=== PATIENT | female | born 1990 | race African-American/Black ===

== ENCOUNTER 2019-01-09 20:06 | Emergency (ER) | payer OTHER ==
--- NOTE | 2019-01-09 20:26 | RAD ---
XR Chest 1 View Portable HISTORY: Chest pain COMPARISON: 01/18/2017 study FINDINGS: Heart size and mediastinum are within normal limits. The lungs are clear of infiltrates. No significant bony findings. IMPRESSION: No active intrathoracic disease.
[2019-01-09] MEDS ORDERED: Aspirin Chewable 81 MG TAB ONE (20:32)
[2019-01-09] MEDS ORDERED: Metoclopramide HCl 10 MG/2 ML VIAL ONE (20:36)
[2019-01-09] MEDS ORDERED: Capsaicin 0.025% Cream 60 gm Tube TOP SCH (20:45)
[2019-01-09 20:55] LABS: #Lymphocytes 1.9 thou/uL (1.20-3.40); #Monocytes 1.5 thou/uL (0.11-0.59); #Neutrophils 10.3 thou/uL (1.40-6.50); %Basophils 0.2 % (0.0-1.0); %Eosinophils 0.1 % (0.0-10.0); %Lymphocytes 13.9 % (21.0-51.0); %Monocytes 10.6 % (0.0-10.0); %Neutrophils 75.2 % (42.0-75.0); Hemoglobin 14.6 g/dL (12.0-16.0); Mean Corpuscular HGB CONC 34.9 g/dL (32.0-36.0); Mean Corpuscular Hemoglobin 31.4 pg (27.0-31.0); Mean Corpuscular Volume 90.2 fL (78.0-98.0); Mean Platelet Volume 8.3 fL (7.4-10.4); Platelet Count 206 thou/uL (130-400); RBC Distribution Width 12.2 % (11.5-14.5); Red Blood Cell (RBC) Count 4.64 mill/uL (4.20-5.40); White Blood Cell (WBC) Count 13.7 thou/uL (4.8-10.8)
[2019-01-09 21:17] LABS: ALT (SGPT) 19 U/L (8-55); AST (SGOT) 20 U/L (5-34); Albumin 4.5 g/dL (3.5-5.0); Alkaline Phosphatase 45 U/L (40-150); Anion Gap 13 mmol/L (10-20); BUN (Urea Nitrogen) 13 mg/dL (7.0-18.7); Bilirubin, Total 1.1 mg/dL (0.2-1.2); Calc. Creatinine Clearance 0 mL/min (70-130); Calcium 9.3 mg/dL (7.8-10.44); Carbon Dioxide 24 mmol/L (22-29); Chloride 106 mmol/L (98-107); Estimated GFR-MDRD 83; Globulin 3.3 g/dL (2.4-3.5); Glucose 98 mg/dL (70-105); Lipase 17 U/L (8-78); Potassium 3.3 mmol/L (3.5-5.1); Protein, Total 7.8 g/dL (6.0-8.3); Sodium 140 mmol/L (136-145)
== END 2019-01-09 22:46 | disposition home or self-care (01) ==
LOC: ERS 20:06
DX: R07.89 Other chest pain (principal); G43.A0 Cyclical vomiting, in migraine, not intractable; J45.909 Unspecified asthma, uncomplicated; F31.9 Bipolar disorder, unspecified
CPT/HCPCS: 36415; 71045; 80053; 83690; 84484; 85025; 85379; 93005; 96365; 96366; J2765

== ENCOUNTER 2019-01-10 08:40 | Emergency (ER) | payer OTHER ==
[2019-01-10] MEDS ORDERED: Lorazepam 2 MG/ML VIAL ONE (09:43)
== END 2019-01-10 10:10 | disposition home or self-care (01) ==
LOC: ERS 08:40
DX: F41.9 Anxiety disorder, unspecified (principal); J45.909 Unspecified asthma, uncomplicated; F31.9 Bipolar disorder, unspecified; F20.9 Schizophrenia, unspecified
CPT/HCPCS: 96374; J2060

== ENCOUNTER 2020-06-16 11:32 | Emergency (ER) | payer OTHER ==
[2020-06-16 18:19] LABS: SARS-CoV-2 PCR by NAA DETECTED (NotDetected)
== END 2020-06-16 11:59 | disposition home or self-care (01) ==
LOC: ERS 11:32
DX: U07.1 COVID-19 (principal); J45.909 Unspecified asthma, uncomplicated
CPT/HCPCS: 87635; 99283; U0003; U0005

== ENCOUNTER 2021-02-19 23:49 | Emergency (ER) | payer OTHER | END 2021-02-20 01:45 | LOC: ERS 23:49 | DX: J45.901 Unspecified asthma with (acute) exacerbation (principal) | CPT/HCPCS: 71045 ==

== ENCOUNTER 2021-04-07 17:49 | Inpatient (IN) | payer OTHER ==
[~2021-04-07 17:49] MED LIST: Iopamidol-370 76% 500 ML 1 ML ONE
[2021-04-07] MEDS ORDERED: Albuterol Sulfate 2.5 mg/0.5 ml Neb ONE (17:59)
[2021-04-07] MEDS ORDERED: Albuterol Sulfate 2.5 mg/3 ml Neb ONE (17:59)
[2021-04-07] MEDS ORDERED: Norepinephrine 8 MG/0.9% NS 250 ML ONE (18:08)
[2021-04-07 18:10] LABS: #Basophils 0.1 thou/uL (0.0-0.2); #Eosinphils 0.4 thou/uL (0.0-0.7); #Lymphocytes 3.8 thou/uL (1.20-3.40); #Monocytes 0.5 thou/uL (0.11-0.59); #Neutrophils 6.1 thou/uL (1.40-6.50); %Basophils 0.7 % (0.0-1.0); %Eosinophils 3.9 % (0.0-10.0); %Lymphocytes 35.1 % (21.0-51.0); %Monocytes 4.8 % (0.0-10.0); %Neutrophils 55.6 % (42.0-75.0); Mean Corpuscular HGB CONC 33.2 g/dL (32.0-36.0); Mean Corpuscular Volume 93.4 fL (78.0-98.0); Mean Platelet Volume 7.7 fL (7.4-10.4); Platelet Count 179 thou/uL (130-400); RBC Distribution Width 12.9 % (11.5-14.5); Red Blood Cell (RBC) Count 4.53 mill/uL (4.20-5.40); White Blood Cell (WBC) Count 10.9 thou/uL (4.8-10.8)
[2021-04-07] MEDS ORDERED: Fentanyl BOLUS 250 ML IVPB PRN ×2 (18:15→21:00)
[2021-04-07] MEDS ORDERED: Fentanyl CADD 100 ML IV SCH (18:15)
[2021-04-07 18:23] LABS: BHCG - Serum Negative (NEGATIVE); Pregs Control Background? CLEAR/WHITE (CLR/WHITE); Pregs Control Bar Appear? YES (CONTROL BAR)
[2021-04-07 18:38] LABS: ALT (SGPT) 13 U/L (8-55); AST (SGOT) 21 U/L (5-34); Albumin 3.9 g/dL (3.5-5.0); Alkaline Phosphatase 65 U/L (40-110); Anion Gap 9 mmol/L (10-20); BUN (Urea Nitrogen) 6 mg/dL (7.0-18.7); Bilirubin, Total 0.3 mg/dL (0.2-1.2); Calc. Creatinine Clearance 0 mL/min (70-130); Calcium 8.5 mg/dL (7.8-10.44); Carbon Dioxide 29 mmol/L (22-29); Chloride 105 mmol/L (98-107); Globulin 3.3 g/dL (2.4-3.5); Glucose 140 mg/dL (70-105); Potassium 3.1 mmol/L (3.5-5.1); Protein, Total 7.2 g/dL (6.0-8.3); Sodium 140 mmol/L (136-145)
[2021-04-07 18:39] LABS: Actual Bicarbonate (HCO3a) 19.4 mEq/L (22-28); Analyzer IN Cardio ER; Base Excess (BEa) -6.8 mEq/L (-2.0 to +3.0); Calcium, Ionized (arterial) 1.03 mmol/L (1.12-1.30); Carboxyhemoglobin (COHb) 0.3 gm% (0.0-3.0); Hemoglobin (Hb) 12.2 g/dL (12.0-16.0); O2 Tension (PaO2), arterial 326.8 mmHg (80.0-100.0); Potassium - ABG Lab 2.74 mmol/L (3.70-5.30); pH, Arterial 7.29 (7.35-7.45)
[2021-04-07 18:42] LABS: Puncture Site LRA
[2021-04-07 19:02] LABS: Bacteria/HPF None Seen HPF (None Seen); Bilirubin Negative (Negative); Blood, Urine 1+ (Negative); Clarity Clear (Clear); Glucose, Urine (Dipstick) 50 mg/dL (Negative); Ketone, Urine Negative (Negative); Leukocyte Negative Leu/uL (Negative); Nitrite Negative (Negative); Protein, Urine (Dipstick) 30 mg/dL (Neg-Trace); RBC/HPF 0-3 HPF (0-3); Specific Gravity, Urine 1.011 (1.002-1.036); Squamous Epithelial 0-3 HPF (0-3); Urobilinogen Normal mg/dL (Less than 2); WBC/HPF 0-3 HPF (0-3); pH, Urine 5.5 (5.0-9.0)
[2021-04-07 19:39] LABS: SARS-CoV-2 NAA Rapid Test Not Detected (NotDetected)
[2021-04-07] MEDS ORDERED: Cefepime 2 GM VIAL ONE (20:33)
[2021-04-07] MEDS ORDERED: Norepinephrine 8 MG/0.9% NS 250 ML IVPB PRN (20:36)
[2021-04-07] MEDS ORDERED: Acetaminophen 650 MG Suppository PR PRN (20:36)
[2021-04-07 20:43] LABS: Amphetamine Not Detected (NotDetected); Barbiturates Screen Not Detected (NotDetected); Benzodiazepine Screen Not Detected (NotDetected); Cocaine Metabolite Screen Not Detected (NotDetected); Methadone Not Detected (NotDetected); Methamphetamine Detected (NotDetected); Opiate Screen Not Detected (NotDetected); Oxycodone Screen Not Detected (NotDetected); Phencyclidine (PCP) Not Detected (NotDetected); THC/Cannabinoid Screen Detected (NotDetected); Tricyclic Screen Not Detected (NotDetected)
[2021-04-07] MEDS ORDERED: Ventilator Sedation Protocol 1 EACH FS SCH (20:45)
[2021-04-07] MEDS ORDERED: Morphine 4 MG/ML VIAL SLOW IVP PRN (20:59)
[2021-04-07] MEDS ORDERED: Propofol BOLUS 1,000 MG/100 ML VIAL IV PRN (21:00)
[2021-04-07] MEDS ORDERED: DISCONTINUE PREVIOUS NARCOTIC PAIN MEDICATIONS AND BENZODIAZEPINES FS SCH (21:00)
[2021-04-07] MEDS ORDERED: Morphine 2 MG/ML VIAL SLOW IVP PRN (21:00)
[2021-04-07 21:10] LABS: Magnesium 2.3 mg/dL (1.6-2.6)
[2021-04-07] MEDS ORDERED: Potassium Chloride 20 MEQ TAB PO SCH (21:15)
[2021-04-07] MEDS ORDERED: Electrolyte Replacement Protocol 1 EACH FS PRN (21:15)
[2021-04-07] MEDS ORDERED: Vancomycin 1 GM in Premix Bag 1 BAG IVPB SCH (21:30)
[2021-04-07] MEDS: Lorazepam 2 MG/ML VIAL SLOW IVP PRN (21:33)
[2021-04-07] MEDS ORDERED: methylPREDNISolone Sod Succ/PF 125 MG/2 ML VIAL IVP SCH (21:45)
[2021-04-07] MEDS ORDERED: Albuterol Sulfate 2.5 mg/3 ml Neb NEB PRN (21:54)
[2021-04-07] MEDS: Propofol 1,000 MG/100 ML VIAL IV PRN (22:19)
[2021-04-07] MEDS: Sodium Chloride 0.9% 1,000 ML IV SCH (22:55)
[2021-04-07] MEDS ORDERED: Potassium Bicarbonate/Cit Ac 20 MEQ TAB PO SCH (23:45)
[2021-04-07 23:50] LABS: Lactic Acid 2.6 mmol/L (0.5-2.2)
[2021-04-08] MEDS: Lorazepam 2 MG/ML VIAL SLOW IVP PRN ×3 (00:32→12:08)
[2021-04-08] MEDS: Sodium Chloride 0.9% 1,000 ML IV SCH ×4 (01:54→17:56)
[2021-04-08] MEDS ORDERED: Sodium Chloride 0.9% 1,000 ML IV SCH ×3 (03:00→05:45)
[2021-04-08 04:50] LABS: Lactic Acid 4.3 mmol/L (0.5-2.2)
[2021-04-08 04:52] LABS: Anion Gap 15 mmol/L (10-20); BUN (Urea Nitrogen) 5 mg/dL (7.0-18.7); Calc. Creatinine Clearance 77 mL/min (70-130); Calcium 7.2 mg/dL (7.8-10.44); Carbon Dioxide 19 mmol/L (22-29); Chloride 110 mmol/L (98-107); Glucose 148 mg/dL (70-105); Sodium 139 mmol/L (136-145)
[2021-04-08] MEDS ORDERED: MEROPENEM 1 GM/50 ML 1 GM in Premix Bag 1 BAG IVPB SCH ×2 (05:30→09:00)
[2021-04-08] MEDS: Enoxaparin Sodium 40 MG/0.4 ML SYRINGE SC SCH (07:19)
[2021-04-08] MEDS: Propofol 1,000 MG/100 ML VIAL IV PRN ×2 (07:19→17:55)
[2021-04-08 07:20] LABS: #Lymphocytes 0.5 thou/uL (1.20-3.40); #Monocytes 0.2 thou/uL (0.11-0.59); #Neutrophils 14.2 thou/uL (1.40-6.50); %Eosinophils 0.1 % (0.0-10.0); %Lymphocytes 3.1 % (21.0-51.0); %Monocytes 1.6 % (0.0-10.0); %Neutrophils 95.3 % (42.0-75.0); Hemoglobin 12.4 g/dL (12.0-16.0); Mean Corpuscular HGB CONC 32.3 g/dL (32.0-36.0); Mean Corpuscular Hemoglobin 30.3 pg (27.0-31.0); Mean Corpuscular Volume 93.7 fL (78.0-98.0); Mean Platelet Volume 7.9 fL (7.4-10.4); Platelet Count 180 thou/uL (130-400); RBC Distribution Width 12.9 % (11.5-14.5); Red Blood Cell (RBC) Count 4.11 mill/uL (4.20-5.40); White Blood Cell (WBC) Count 14.9 thou/uL (4.8-10.8)
[2021-04-08] MEDS ORDERED: Fentanyl CADD 100 ML ONE ×2 (07:27→18:47)
[2021-04-08] MEDS: Fentanyl CADD 100 ML IV SCH ×2 (07:29→19:10)
[2021-04-08 07:31] LABS: Lactic Acid 3.4 mmol/L (0.5-2.2)
[2021-04-08] MEDS ORDERED: Vecuronium 10 MG VIAL ONE (07:42)
[2021-04-08] MEDS ORDERED: Cefepime 2 GM in Sodium Chloride 0.9% 100 ML IVPB SCH (09:00)
[2021-04-08] MEDS ORDERED: methylPREDNISolone Sod Succ 40 MG VIAL IVP SCH (09:00)
[2021-04-08] MEDS ORDERED: Vancomycin HCl 1.5 GM in Sodium Chloride 0.9% 250 ML 300 ML IVPB SCH (09:00)
[2021-04-08] MEDS ORDERED: FLU VACC QS2021-22(6MOS UP)/PF 60 MCG/0.5 ML SYRINGE IM ONE (09:00)
[2021-04-08] MEDS ORDERED: Iopamidol-370 76% 500 ML 1 ML ONE (09:58)
[2021-04-08] MEDS ORDERED: Vancomycin HCl 750 MG in Sodium Chloride 0.9% 250 ML 250 ML IVPB SCH (10:00)
[2021-04-08] MEDS: cefTRIAXone\\ROCEPHIN 2 GM in Sodium Chloride 0.9% 100 ML IVPB SCH (10:03)
[2021-04-08] MEDS: Albuterol Sulfate 2.5 mg/3 ml Neb NEB SCH ×7 (11:10→23:04)
[2021-04-08 11:19] LABS: Lactic Acid 2.8 mmol/L (0.5-2.2)
[2021-04-08] MEDS: methylPREDNISolone Sod Succ 40 MG VIAL IVP SCH ×3 (12:09→23:32)
[2021-04-08] MEDS ORDERED: Magnesium Sulfate 3 GM in Sodium Chloride 0.9% 100 ML IVPB SCH (13:15)
[2021-04-08] MEDS ORDERED: Meropenem 1 GM in Sodium Chloride 0.9% 100 ML IVPB SCH (14:00)
[2021-04-09] MEDS: Sodium Chloride 0.9% 1,000 ML IV SCH ×3 (02:03→19:53)
[2021-04-09] MEDS: Albuterol Sulfate 2.5 mg/3 ml Neb NEB SCH ×7 (03:22→13:03)
[2021-04-09] MEDS: methylPREDNISolone Sod Succ 40 MG VIAL IVP SCH ×4 (05:24→23:38)
[2021-04-09] MEDS: Propofol 1,000 MG/100 ML VIAL IV PRN ×2 (05:24→18:22)
[2021-04-09] MEDS ORDERED: Fentanyl CADD 100 ML ONE ×2 (05:33→15:54)
[2021-04-09] MEDS: Fentanyl CADD 100 ML IV SCH (05:38)
[2021-04-09] MEDS ORDERED: Albuterol Sulfate 2.5 mg/3 ml Neb ONE (08:34)
[2021-04-09 08:53] LABS: #Lymphocytes 0.5 thou/uL (1.20-3.40); #Monocytes 0.7 thou/uL (0.11-0.59); %Eosinophils 0.1 % (0.0-10.0); %Lymphocytes 2.9 % (21.0-51.0); Hemoglobin 11.7 g/dL (12.0-16.0); Mean Corpuscular HGB CONC 33.2 g/dL (32.0-36.0); Mean Corpuscular Hemoglobin 30.8 pg (27.0-31.0); Mean Corpuscular Volume 92.9 fL (78.0-98.0); Mean Platelet Volume 8.3 fL (7.4-10.4); Platelet Count 163 thou/uL (130-400); RBC Distribution Width 12.9 % (11.5-14.5); White Blood Cell (WBC) Count 17.2 thou/uL (4.8-10.8)
[2021-04-09] MEDS: Enoxaparin Sodium 40 MG/0.4 ML SYRINGE SC SCH (09:23)
[2021-04-09] MEDS: Lorazepam 2 MG/ML VIAL SLOW IVP PRN ×5 (09:29→22:05)
[2021-04-09 09:51] LABS: Anion Gap 10 mmol/L (10-20); BUN (Urea Nitrogen) 9 mg/dL (7.0-18.7); Calc. Creatinine Clearance 102 mL/min (70-130); Calcium 8.3 mg/dL (7.8-10.44); Carbon Dioxide 26 mmol/L (22-29); Chloride 108 mmol/L (98-107); Glucose 104 mg/dL (70-105); Potassium 4.2 mmol/L (3.5-5.1); Sodium 140 mmol/L (136-145)
[2021-04-09] MEDS: cefTRIAXone\\ROCEPHIN 2 GM in Sodium Chloride 0.9% 100 ML IVPB SCH (11:04)
[2021-04-09] MEDS: Pantoprazole 40 MG VIAL IVP SCH (11:07)
[2021-04-09] MEDS: Vecuronium 10 MG VIAL IV PRN ×5 (13:19→22:05)
[2021-04-09] MEDS ORDERED: Albuterol Sulfate 2.5 mg/3 ml Neb NEB PRN (14:45)
[2021-04-09] MEDS ORDERED: Sterile Water 10 ML ONE ×2 (20:11→23:00)
[2021-04-10] MEDS: Vecuronium 10 MG VIAL IV PRN ×11 (02:55→22:22)
[2021-04-10] MEDS: Lorazepam 2 MG/ML VIAL SLOW IVP PRN ×5 (02:55→15:47)
[2021-04-10] MEDS ORDERED: Fentanyl CADD 100 ML ONE ×2 (02:58→13:32)
[2021-04-10] MEDS: Fentanyl CADD 100 ML IV SCH (03:02)
[2021-04-10] MEDS: Propofol 1,000 MG/100 ML VIAL IV PRN ×3 (03:55→20:28)
[2021-04-10] MEDS: Sodium Chloride 0.9% 1,000 ML IV SCH ×2 (03:56→12:47)
[2021-04-10 04:43] LABS: #Lymphocytes 0.4 thou/uL (1.20-3.40); #Monocytes 0.5 thou/uL (0.11-0.59); #Neutrophils 13.8 thou/uL (1.40-6.50); %Eosinophils 0.1 % (0.0-10.0); %Lymphocytes 2.7 % (21.0-51.0); %Monocytes 3.2 % (0.0-10.0); Hemoglobin 12.3 g/dL (12.0-16.0); Mean Corpuscular HGB CONC 32.6 g/dL (32.0-36.0); Mean Corpuscular Hemoglobin 30.5 pg (27.0-31.0); Mean Corpuscular Volume 93.5 fL (78.0-98.0); Mean Platelet Volume 8.3 fL (7.4-10.4); Platelet Count 169 thou/uL (130-400); Red Blood Cell (RBC) Count 4.04 mill/uL (4.20-5.40); White Blood Cell (WBC) Count 14.6 thou/uL (4.8-10.8)
[2021-04-10 05:05] LABS: Anion Gap 9 mmol/L (10-20); BUN (Urea Nitrogen) 11 mg/dL (7.0-18.7); Calc. Creatinine Clearance 110 mL/min (70-130); Calcium 8.8 mg/dL (7.8-10.44); Carbon Dioxide 29 mmol/L (22-29); Chloride 107 mmol/L (98-107); Glucose 108 mg/dL (70-105); Potassium 4.2 mmol/L (3.5-5.1); Sodium 141 mmol/L (136-145)
[2021-04-10] MEDS: methylPREDNISolone Sod Succ 40 MG VIAL IVP SCH ×2 (06:04→11:29)
[2021-04-10 07:46] LABS: Actual Bicarbonate (HCO3a) 28.3 mEq/L (22-28); Base Excess (BEa) 1.7 mEq/L (-2.0 to +3.0); CO2 Tension 53.1 mmHg (35.0-45.0); Calcium, Ionized (arterial) 1.15 mmol/L (1.12-1.30); Carboxyhemoglobin (COHb) 0.3 gm% (0.0-3.0); Hemoglobin (Hb) 12.4 g/dL (12.0-16.0); O2 Tension (PaO2), arterial 111.7 mmHg (80.0-100.0); Potassium - ABG Lab 4.23 mmol/L (3.70-5.30); pH, Arterial 7.34 (7.35-7.45)
[2021-04-10 09:03] LABS: Puncture Site LRA
[2021-04-10 09:04] LABS: ALV-art Gradient 107.125 mmHg (0-20)
[2021-04-10] MEDS: Enoxaparin Sodium 40 MG/0.4 ML SYRINGE SC SCH (09:13)
[2021-04-10] MEDS: cefTRIAXone\\ROCEPHIN 2 GM in Sodium Chloride 0.9% 100 ML IVPB SCH (09:13)
[2021-04-10] MEDS: Pantoprazole 40 MG VIAL IVP SCH (09:14)
[2021-04-10 11:54] LABS: Magnesium 2.5 mg/dL (1.6-2.6)
[2021-04-10 11:54] LABS: Magnesium 2.3 mg/dL (1.6-2.6)
[2021-04-10] MEDS ORDERED: Magnesium 2 GM/50 ML 2 GM in Premix Bag 1 BAG IVPB SCH (14:00)
[2021-04-10] MEDS: Azithromycin 500 MG in Sodium Chloride 0.9% 500 ML IVPB SCH (14:37)
[2021-04-10 15:39] LABS: Actual Bicarbonate (HCO3a) 27.5 mEq/L (22-28); Base Excess (BEa) -0.1 mEq/L (-2.0 to +3.0); CO2 Tension 58.6 mmHg (35.0-45.0); Calcium, Ionized (arterial) 1.19 mmol/L (1.12-1.30); Carboxyhemoglobin (COHb) 0.3 gm% (0.0-3.0); Hemoglobin (Hb) 12.6 g/dL (12.0-16.0); O2 Tension (PaO2), arterial 88.8 mmHg (80.0-100.0); Potassium - ABG Lab 4.16 mmol/L (3.70-5.30); pH, Arterial 7.29 (7.35-7.45)
[2021-04-10] MEDS ORDERED: Sodium Bicarbonate 50 MEQ in Sodium Chloride 0.45% 1,000 ML IV SCH (16:00)
[2021-04-10 16:36] LABS: Puncture Site LBA
[2021-04-10] MEDS: methylPREDNISolone Sod Succ/PF 125 MG/2 ML VIAL IVP SCH (17:11)
[2021-04-10] MEDS ORDERED: Bisacodyl 10 MG SUPP PR PRN (18:09)
[2021-04-10] MEDS: Magnesium 2 GM/50 ML 2 GM in Premix Bag 1 BAG IVPB SCH (20:28)
[2021-04-10] MEDS ORDERED: Sterile Water 10 ML ONE (20:42)
[2021-04-11] MEDS: methylPREDNISolone Sod Succ/PF 125 MG/2 ML VIAL IVP SCH ×5 (00:11→23:57)
[2021-04-11] MEDS ORDERED: Fentanyl CADD 100 ML ONE ×3 (00:23→21:28)
[2021-04-11] MEDS ORDERED: Sterile Water 10 ML ONE ×2 (00:24→05:20)
[2021-04-11] MEDS: Fentanyl CADD 100 ML IV SCH ×3 (00:29→21:35)
[2021-04-11] MEDS: Vecuronium 10 MG VIAL IV PRN ×7 (02:10→23:57)
[2021-04-11] MEDS: Propofol 1,000 MG/100 ML VIAL IV PRN ×3 (03:39→21:33)
[2021-04-11 04:38] LABS: #Lymphocytes 0.4 thou/uL (1.20-3.40); #Monocytes 0.3 thou/uL (0.11-0.59); #Neutrophils 12.2 thou/uL (1.40-6.50); %Eosinophils 0.1 % (0.0-10.0); %Lymphocytes 3.2 % (21.0-51.0); %Monocytes 2.5 % (0.0-10.0); %Neutrophils 94.3 % (42.0-75.0); Hemoglobin 11.7 g/dL (12.0-16.0); Mean Corpuscular HGB CONC 31.6 g/dL (32.0-36.0); Mean Corpuscular Hemoglobin 30.1 pg (27.0-31.0); Mean Platelet Volume 7.7 fL (7.4-10.4); Platelet Count 169 thou/uL (130-400); Red Blood Cell (RBC) Count 3.89 mill/uL (4.20-5.40)
[2021-04-11 05:09] LABS: BUN (Urea Nitrogen) 9 mg/dL (7.0-18.7); Calc. Creatinine Clearance 108 mL/min (70-130); Calcium 8.5 mg/dL (7.8-10.44); Glucose 129 mg/dL (70-105); Magnesium 2.8 mg/dL (1.6-2.6)
[2021-04-11 05:18] LABS: Anion Gap 11 mmol/L (10-20); Carbon Dioxide 33 mmol/L (22-29); Chloride 103 mmol/L (98-107); Potassium 4.7 mmol/L (3.5-5.1); Sodium 142 mmol/L (136-145)
[2021-04-11 05:21] LABS: Free T4 (Free Thyroxine) 0.68 ng/dL (0.70-1.48); Thyroid Stimulating Hormone 0.1654 uIU/mL (0.35-4.94)
[2021-04-11] MEDS: Sodium Chloride 0.9% 1,000 ML IV SCH (05:57)
[2021-04-11 07:22] LABS: Calcium, Ionized (arterial) 1.18 mmol/L (1.12-1.30); Carboxyhemoglobin (COHb) 0.7 gm% (0.0-3.0); Hemoglobin (Hb) 13.7 g/dL (12.0-16.0); O2 Tension (PaO2), arterial 73.2 mmHg (80.0-100.0); pH, Arterial 7.27 (7.35-7.45)
[2021-04-11 07:54] LABS: CO2 Tension 82.4 mmHg (35.0-45.0); Puncture Site RRA
[2021-04-11] MEDS: Magnesium 2 GM/50 ML 2 GM in Premix Bag 1 BAG IVPB SCH ×2 (08:12→20:46)
[2021-04-11] MEDS: Enoxaparin Sodium 40 MG/0.4 ML SYRINGE SC SCH (08:12)
[2021-04-11] MEDS: Pantoprazole 40 MG VIAL IVP SCH (08:14)
[2021-04-11] MEDS: Cholecalciferol 1,000 UNITS (25 MCG) TAB PO SCH (08:14)
[2021-04-11] MEDS: cefTRIAXone\\ROCEPHIN 2 GM in Sodium Chloride 0.9% 100 ML IVPB SCH (09:30)
[2021-04-11] MEDS: Lorazepam 2 MG/ML VIAL SLOW IVP PRN ×2 (13:30→16:15)
[2021-04-11] MEDS: Azithromycin 500 MG in Sodium Chloride 0.9% 500 ML IVPB SCH (15:04)
[2021-04-11] MEDS: Acetaminophen 325 MG TAB PO PRN (16:15)
[2021-04-11] MEDS ORDERED: Theophyllin SR 24HR 100 MG CAP PO SCH ×2 (17:00→20:00)
[2021-04-11] MEDS: Theophyllin SR 24HR 100 MG CAP PO SCH (20:37)
[2021-04-12] MEDS: Lorazepam 2 MG/ML VIAL SLOW IVP PRN ×5 (01:18→22:52)
[2021-04-12] MEDS: Vecuronium 10 MG VIAL IV PRN ×8 (02:14→22:52)
[2021-04-12 04:37] LABS: #Lymphocytes 0.4 thou/uL (1.20-3.40); #Monocytes 0.4 thou/uL (0.11-0.59); #Neutrophils 12.2 thou/uL (1.40-6.50); %Lymphocytes 2.7 % (21.0-51.0); %Monocytes 3.3 % (0.0-10.0); Hemoglobin 11.9 g/dL (12.0-16.0); Mean Corpuscular Hemoglobin 30.7 pg (27.0-31.0); Mean Corpuscular Volume 95.8 fL (78.0-98.0); Mean Platelet Volume 7.9 fL (7.4-10.4); Platelet Count 167 thou/uL (130-400); RBC Distribution Width 12.8 % (11.5-14.5); Red Blood Cell (RBC) Count 3.87 mill/uL (4.20-5.40)
[2021-04-12 04:45] LABS: BUN (Urea Nitrogen) 11 mg/dL (7.0-18.7); Calc. Creatinine Clearance 111 mL/min (70-130); Calcium 8.9 mg/dL (7.8-10.44); Glucose 140 mg/dL (70-105); Magnesium 2.7 mg/dL (1.6-2.6)
[2021-04-12 04:54] LABS: Anion Gap 12 mmol/L (10-20); Carbon Dioxide 37 mmol/L (22-29); Chloride 98 mmol/L (98-107); Potassium 4.7 mmol/L (3.5-5.1); Sodium 142 mmol/L (136-145)
[2021-04-12 05:05] LABS: Follicle Stimulating Hormone 3.79 mIU/mL (See Ranges); Luteinizing Hormone 0.87 mIU/mL (See Ranges)
[2021-04-12] MEDS: Propofol 1,000 MG/100 ML VIAL IV PRN ×2 (05:15→22:58)
[2021-04-12] MEDS: Sodium Chloride 0.9% 1,000 ML IV SCH (05:15)
[2021-04-12] MEDS: Theophyllin SR 24HR 100 MG CAP PO SCH ×3 (05:40→22:47)
[2021-04-12] MEDS: methylPREDNISolone Sod Succ/PF 125 MG/2 ML VIAL IVP SCH ×3 (05:40→17:55)
[2021-04-12 07:18] LABS: Actual Bicarbonate (HCO3a) 41.5 mEq/L (22-28); Base Excess (BEa) 11.7 mEq/L (-2.0 to +3.0); Calcium, Ionized (arterial) 1.16 mmol/L (1.12-1.30); Carboxyhemoglobin (COHb) 0.6 gm% (0.0-3.0); Hemoglobin (Hb) 13.2 g/dL (12.0-16.0); O2 Tension (PaO2), arterial 82.6 mmHg (80.0-100.0); Potassium - ABG Lab 4.38 mmol/L (3.70-5.30); pH, Arterial 7.31 (7.35-7.45)
[2021-04-12 07:41] LABS: CO2 Tension 84.4 mmHg (35.0-45.0); Puncture Site RRA
[2021-04-12] MEDS ORDERED: Fentanyl CADD 100 ML ONE ×2 (08:17→19:30)
[2021-04-12] MEDS: Fentanyl CADD 100 ML IV SCH ×2 (08:23→19:35)
[2021-04-12] MEDS: Enoxaparin Sodium 40 MG/0.4 ML SYRINGE SC SCH (09:32)
[2021-04-12] MEDS: Magnesium 2 GM/50 ML 2 GM in Premix Bag 1 BAG IVPB SCH ×2 (09:33→21:59)
[2021-04-12] MEDS: cefTRIAXone\\ROCEPHIN 2 GM in Sodium Chloride 0.9% 100 ML IVPB SCH (09:33)
[2021-04-12] MEDS: Cholecalciferol 1,000 UNITS (25 MCG) TAB PO SCH (09:34)
[2021-04-12] MEDS: Pantoprazole 40 MG VIAL IVP SCH (09:38)
[2021-04-12] MEDS: Azithromycin 500 MG in Sodium Chloride 0.9% 500 ML IVPB SCH (14:11)
[2021-04-13] MEDS: methylPREDNISolone Sod Succ/PF 125 MG/2 ML VIAL IVP SCH ×4 (00:41→17:03)
[2021-04-13] MEDS: Vecuronium 10 MG VIAL IV PRN ×9 (03:51→20:01)
[2021-04-13] MEDS: Lorazepam 2 MG/ML VIAL SLOW IVP PRN ×6 (03:51→21:41)
[2021-04-13 04:31] LABS: Magnesium 2.5 mg/dL (1.6-2.6)
[2021-04-13] MEDS: Theophyllin SR 24HR 100 MG CAP PO SCH ×3 (06:24→21:22)
[2021-04-13] MEDS ORDERED: Fentanyl CADD 100 ML ONE ×2 (06:38→17:14)
[2021-04-13] MEDS: Fentanyl CADD 100 ML IV SCH ×2 (07:04→17:15)
[2021-04-13] MEDS: Sodium Chloride 0.9% 1,000 ML IV SCH ×2 (07:59→22:56)
[2021-04-13 08:03] LABS: Actual Bicarbonate (HCO3a) 42.9 mEq/L (22-28); Base Excess (BEa) 14.3 mEq/L (-2.0 to +3.0); Calcium, Ionized (arterial) 1.19 mmol/L (1.12-1.30); Carboxyhemoglobin (COHb) 0.5 gm% (0.0-3.0); Hemoglobin (Hb) 12.6 g/dL (12.0-16.0); O2 Tension (PaO2), arterial 81.9 mmHg (80.0-100.0); pH, Arterial 7.37 (7.35-7.45)
[2021-04-13 08:16] LABS: CO2 Tension 75.7 mmHg (35.0-45.0); Puncture Site RBA
[2021-04-13 08:18] LABS: ALV-art Gradient 37.375 mmHg (0-20)
[2021-04-13] MEDS: Propofol 1,000 MG/100 ML VIAL IV PRN ×3 (08:52→22:56)
[2021-04-13] MEDS: Cholecalciferol 1,000 UNITS (25 MCG) TAB PO SCH (08:54)
[2021-04-13] MEDS: Magnesium 2 GM/50 ML 2 GM in Premix Bag 1 BAG IVPB SCH ×2 (08:54→21:18)
[2021-04-13] MEDS: Enoxaparin Sodium 40 MG/0.4 ML SYRINGE SC SCH (08:54)
[2021-04-13] MEDS: Pantoprazole 40 MG VIAL IVP SCH (08:55)
[2021-04-13] MEDS: Azithromycin 500 MG in Sodium Chloride 0.9% 500 ML IVPB SCH (14:27)
[2021-04-13] MEDS ORDERED: Levothyroxine Sodium 50 MCG TAB PO SCH (17:00)
[2021-04-13] MEDS ORDERED: Sterile Water 10 ML ONE (19:58)
[2021-04-14] MEDS: Lorazepam 2 MG/ML VIAL SLOW IVP PRN ×4 (00:24→09:43)
[2021-04-14] MEDS: Vecuronium 10 MG VIAL IV PRN ×7 (00:25→17:39)
[2021-04-14] MEDS: methylPREDNISolone Sod Succ/PF 125 MG/2 ML VIAL IVP SCH ×5 (00:26→23:06)
[2021-04-14] MEDS ORDERED: Fentanyl CADD 100 ML ONE ×2 (03:56→13:27)
[2021-04-14] MEDS: Fentanyl CADD 100 ML IV SCH ×2 (04:00→13:29)
[2021-04-14] MEDS: Levothyroxine Sodium 50 MCG TAB PO SCH ×2 (06:20→06:21)
[2021-04-14] MEDS: Enoxaparin Sodium 40 MG/0.4 ML SYRINGE SC SCH (07:40)
[2021-04-14] MEDS: Theophyllin SR 24HR 100 MG CAP PO SCH (07:40)
[2021-04-14] MEDS: Propofol 1,000 MG/100 ML VIAL IV PRN ×3 (07:40→17:39)
[2021-04-14] MEDS: Cholecalciferol 1,000 UNITS (25 MCG) TAB PO SCH (07:41)
[2021-04-14] MEDS: Magnesium 2 GM/50 ML 2 GM in Premix Bag 1 BAG IVPB SCH ×2 (07:41→19:52)
[2021-04-14 08:06] LABS: Actual Bicarbonate (HCO3a) 38.9 mEq/L (22-28); Base Excess (BEa) 10.6 mEq/L (-2.0 to +3.0); CO2 Tension 70.7 mmHg (35.0-45.0); Calcium, Ionized (arterial) 1.17 mmol/L (1.12-1.30); Carboxyhemoglobin (COHb) 0.6 gm% (0.0-3.0); Hemoglobin (Hb) 13.2 g/dL (12.0-16.0); O2 Tension (PaO2), arterial 70.6 mmHg (80.0-100.0); Potassium - ABG Lab 4.17 mmol/L (3.70-5.30); pH, Arterial 7.36 (7.35-7.45)
[2021-04-14 08:07] LABS: ALV-art Gradient 54.925 mmHg (0-20); Puncture Site RRA
[2021-04-14] MEDS ORDERED: acetaZOLAMIDE Sodium 500 mg Vial IVP SCH (10:15)
[2021-04-14] MEDS: Azithromycin 500 MG in Sodium Chloride 0.9% 500 ML IVPB SCH (14:31)
[2021-04-14] MEDS: Pantoprazole 40 MG VIAL IVP SCH (17:52)
[2021-04-14] MEDS: Montelukast Sodium 10 mg Tablet PER TUBE SCH (19:52)
[2021-04-15] MEDS ORDERED: Fentanyl CADD 100 ML ONE (01:28)
[2021-04-15] MEDS: Fentanyl CADD 100 ML IV SCH (01:30)
[2021-04-15] MEDS: Propofol 1,000 MG/100 ML VIAL IV PRN ×3 (02:48→17:08)
[2021-04-15 04:40] LABS: #Lymphocytes 0.4 thou/uL (1.20-3.40); #Monocytes 0.5 thou/uL (0.11-0.59); #Neutrophils 13.8 thou/uL (1.40-6.50); %Basophils 0.1 % (0.0-1.0); %Eosinophils 0.2 % (0.0-10.0); %Lymphocytes 2.4 % (21.0-51.0); %Monocytes 3.4 % (0.0-10.0); %Neutrophils 93.9 % (42.0-75.0); Hemoglobin 12.6 g/dL (12.0-16.0); Mean Corpuscular HGB CONC 31.8 g/dL (32.0-36.0); Mean Corpuscular Hemoglobin 29.9 pg (27.0-31.0); Mean Corpuscular Volume 94.1 fL (78.0-98.0); Mean Platelet Volume 7.2 fL (7.4-10.4); Platelet Count 177 thou/uL (130-400); RBC Distribution Width 12.4 % (11.5-14.5); Red Blood Cell (RBC) Count 4.21 mill/uL (4.20-5.40); White Blood Cell (WBC) Count 14.7 thou/uL (4.8-10.8)
[2021-04-15 04:56] LABS: Anion Gap 9 mmol/L (10-20); BUN (Urea Nitrogen) 13 mg/dL (7.0-18.7); Calc. Creatinine Clearance 127 mL/min (70-130); Calcium 9.2 mg/dL (7.8-10.44); Carbon Dioxide 28 mmol/L (22-29); Chloride 106 mmol/L (98-107); Glucose 141 mg/dL (70-105); Sodium 139 mmol/L (136-145)
[2021-04-15] MEDS: methylPREDNISolone Sod Succ/PF 125 MG/2 ML VIAL IVP SCH ×4 (05:07→23:14)
[2021-04-15] MEDS: Sodium Chloride 0.9% 1,000 ML IV SCH (06:39)
[2021-04-15 07:45] LABS: Actual Bicarbonate (HCO3a) 28.1 mEq/L (22-28); Base Excess (BEa) 1.4 mEq/L (-2.0 to +3.0); CO2 Tension 52.4 mmHg (35.0-45.0); Calcium, Ionized (arterial) 1.28 mmol/L (1.12-1.30); Carboxyhemoglobin (COHb) 0.5 gm% (0.0-3.0); Hemoglobin (Hb) 15.3 g/dL (12.0-16.0); O2 Tension (PaO2), arterial 85.6 mmHg (80.0-100.0); Potassium - ABG Lab 4.18 mmol/L (3.70-5.30); pH, Arterial 7.35 (7.35-7.45)
[2021-04-15 07:53] LABS: Puncture Site RBA
[2021-04-15] MEDS: Magnesium 2 GM/50 ML 2 GM in Premix Bag 1 BAG IVPB SCH ×2 (08:37→20:11)
[2021-04-15] MEDS: Enoxaparin Sodium 40 MG/0.4 ML SYRINGE SC SCH (08:37)
[2021-04-15] MEDS: Cholecalciferol 1,000 UNITS (25 MCG) TAB PO SCH (08:37)
[2021-04-15] MEDS: Pantoprazole 40 MG VIAL IVP SCH (09:00)
[2021-04-15 11:11] LABS: SARS-CoV-2 PCR by NAA Not Detected (NotDetected)
[2021-04-15] MEDS ORDERED: Norepinephrine 8 MG/0.9% NS 250 ML ONE (14:35)
[2021-04-15] MEDS ORDERED: Pancrelipase DR 12,000 1 CAP FS PRN (18:45)
[2021-04-15] MEDS ORDERED: Sodium Bicarbonate Tab 325 MG TAB PER TUBE PRN (18:45)
[2021-04-15] MEDS: Montelukast Sodium 10 mg Tablet PER TUBE SCH (20:12)
[2021-04-16 05:01] LABS: Anion Gap 10 mmol/L (10-20); BUN (Urea Nitrogen) 19 mg/dL (7.0-18.7); Calc. Creatinine Clearance 137 mL/min (70-130); Calcium 9.4 mg/dL (7.8-10.44); Carbon Dioxide 27 mmol/L (22-29); Chloride 105 mmol/L (98-107); Glucose 120 mg/dL (70-105); Potassium 3.8 mmol/L (3.5-5.1); Sodium 138 mmol/L (136-145)
[2021-04-16 05:03] LABS: Band 5 % (5-11); Lymphocytes 7 % (21-51); MDiff Complete? YES; Metamyelocyte 1 % (0-0); Monocytes 3 % (0-10); Myelocyte 1 % (0-0); Neutrophil 83 % (42-75); Platelet Morphology Comment Appears Adequate; RBC Morphology Normal
[2021-04-16 05:04] LABS: Hemoglobin 12.3 g/dL (12.0-16.0); Mean Corpuscular HGB CONC 32.6 g/dL (32.0-36.0); Mean Corpuscular Hemoglobin 29.8 pg (27.0-31.0); Mean Corpuscular Volume 91.3 fL (78.0-98.0); Mean Platelet Volume 7.3 fL (7.4-10.4); Platelet Count 190 thou/uL (130-400); RBC Distribution Width 12.7 % (11.5-14.5); Red Blood Cell (RBC) Count 4.15 mill/uL (4.20-5.40); White Blood Cell (WBC) Count 16.5 thou/uL (4.8-10.8)
[2021-04-16] MEDS: methylPREDNISolone Sod Succ/PF 125 MG/2 ML VIAL IVP SCH (05:16)
[2021-04-16 07:49] LABS: Base Excess (BEa) 2.4 mEq/L (-2.0 to +3.0); CO2 Tension 32.2 mmHg (35.0-45.0); Calcium, Ionized (arterial) 1.21 mmol/L (1.12-1.30); Carboxyhemoglobin (COHb) 0.3 gm% (0.0-3.0); Hemoglobin (Hb) 11.6 g/dL (12.0-16.0); O2 Tension (PaO2), arterial 137.9 mmHg (80.0-100.0); pH, Arterial 7.51 (7.35-7.45)
[2021-04-16 07:52] LABS: Puncture Site RBA
[2021-04-16] MEDS: Cholecalciferol 1,000 UNITS (25 MCG) TAB PO SCH (08:34)
[2021-04-16] MEDS: Magnesium 2 GM/50 ML 2 GM in Premix Bag 1 BAG IVPB SCH ×2 (08:34→20:07)
[2021-04-16] MEDS: Sodium Chloride 0.9% 1,000 ML IV SCH (08:35)
[2021-04-16] MEDS: Enoxaparin Sodium 40 MG/0.4 ML SYRINGE SC SCH (08:35)
[2021-04-16] MEDS: Pantoprazole 40 MG VIAL IVP SCH (10:16)
[2021-04-16] MEDS: methylPREDNISolone Sod Succ 40 MG VIAL IVP SCH ×2 (13:41→17:52)
[2021-04-16] MEDS: Montelukast Sodium 10 mg Tablet PER TUBE SCH (20:34)
[2021-04-17] MEDS: methylPREDNISolone Sod Succ 40 MG VIAL IVP SCH ×5 (01:31→22:53)
[2021-04-17 04:49] LABS: Hemoglobin 11.6 g/dL (12.0-16.0); Mean Corpuscular HGB CONC 33.8 g/dL (32.0-36.0); Mean Corpuscular Hemoglobin 30.4 pg (27.0-31.0); Mean Corpuscular Volume 89.7 fL (78.0-98.0); Mean Platelet Volume 7.9 fL (7.4-10.4); Platelet Count 183 thou/uL (130-400); RBC Distribution Width 12.6 % (11.5-14.5); Red Blood Cell (RBC) Count 3.82 mill/uL (4.20-5.40); White Blood Cell (WBC) Count 17.4 thou/uL (4.8-10.8)
[2021-04-17 04:54] LABS: Anion Gap 11 mmol/L (10-20); BUN (Urea Nitrogen) 18 mg/dL (7.0-18.7); Calc. Creatinine Clearance 132 mL/min (70-130); Calcium 8.8 mg/dL (7.8-10.44); Carbon Dioxide 28 mmol/L (22-29); Chloride 104 mmol/L (98-107); Glucose 86 mg/dL (70-105); Potassium 3.5 mmol/L (3.5-5.1); Sodium 139 mmol/L (136-145)
[2021-04-17 05:32] LABS: Band 4 % (5-11); Lymphocytes 18 % (21-51); MDiff Complete? YES; Monocytes 9 % (0-10); Neutrophil 69 % (42-75)
[2021-04-17] MEDS ORDERED: Potassium Bicarbonate/Cit Ac 20 MEQ TAB PER TUBE SCH (07:30)
[2021-04-17] MEDS: Cholecalciferol 1,000 UNITS (25 MCG) TAB PO SCH (10:45)
[2021-04-17] MEDS: Enoxaparin Sodium 40 MG/0.4 ML SYRINGE SC SCH (10:45)
[2021-04-17] MEDS: Pantoprazole 40 MG VIAL IVP SCH (10:46)
[2021-04-17] MEDS: Magnesium 2 GM/50 ML 2 GM in Premix Bag 1 BAG IVPB SCH ×2 (10:46→20:24)
[2021-04-17] MEDS ORDERED: GUAIFENESIN SF SOLN 200 MG/10 ML UDCUP PO PRN (14:37)
[2021-04-17] MEDS: Acetaminophen 325 MG TAB PO PRN (19:05)
[2021-04-17] MEDS: guaiFENesin ER 600 MG TAB PO SCH (20:24)
[2021-04-17] MEDS: Montelukast Sodium 10 mg Tablet PER TUBE SCH (20:24)
[2021-04-17] MEDS ORDERED: Melatonin 3 MG TAB PO SCH (23:31)
[2021-04-18] MEDS ORDERED: traMADol HCl 50 MG TAB PO SCH (03:45)
[2021-04-18] MEDS: methylPREDNISolone Sod Succ 40 MG VIAL IVP SCH (05:03)
[2021-04-18 06:21] LABS: Hemoglobin 13.9 g/dL (12.0-16.0); Mean Corpuscular HGB CONC 32.9 g/dL (32.0-36.0); Mean Corpuscular Hemoglobin 29.4 pg (27.0-31.0); Mean Corpuscular Volume 89.4 fL (78.0-98.0); Mean Platelet Volume 7.5 fL (7.4-10.4); Platelet Count 180 thou/uL (130-400); RBC Distribution Width 12.6 % (11.5-14.5); Red Blood Cell (RBC) Count 4.71 mill/uL (4.20-5.40); White Blood Cell (WBC) Count 20.7 thou/uL (4.8-10.8)
[2021-04-18 06:48] LABS: Anion Gap 14 mmol/L (10-20); BUN (Urea Nitrogen) 14 mg/dL (7.0-18.7); Calc. Creatinine Clearance 118 mL/min (70-130); Calcium 9.4 mg/dL (7.8-10.44); Carbon Dioxide 24 mmol/L (22-29); Chloride 102 mmol/L (98-107); Glucose 93 mg/dL (70-105); Potassium 4.3 mmol/L (3.5-5.1); Sodium 136 mmol/L (136-145)
[2021-04-18 06:58] LABS: Band 3 % (5-11); Lymphocytes 10 % (21-51); MDiff Complete? YES; Monocytes 6 % (0-10); Neutrophil 81 % (42-75)
[2021-04-18] MEDS: Ondansetron ODT 4 MG TAB PO PRN ×2 (07:28→18:14)
[2021-04-18] MEDS: Enoxaparin Sodium 40 MG/0.4 ML SYRINGE SC SCH (08:58)
[2021-04-18] MEDS: Cholecalciferol 1,000 UNITS (25 MCG) TAB PO SCH (08:58)
[2021-04-18] MEDS: guaiFENesin ER 600 MG TAB PO SCH ×2 (08:59→20:46)
[2021-04-18] MEDS: predniSONE 20 MG TAB PO SCH (09:03)
[2021-04-18] MEDS: Magnesium 2 GM/50 ML 2 GM in Premix Bag 1 BAG IVPB SCH (10:35)
[2021-04-18] MEDS ORDERED: Docusate 100 MG CAP PO PRN (17:22)
[2021-04-18] MEDS ORDERED: Polyethylene Glycol 3350 17 GM Packet PO PRN (17:22)
[2021-04-18] MEDS: Lorazepam 0.5 MG TAB PO SCH (18:19)
[2021-04-18] MEDS: Montelukast Sodium 10 mg Tablet PER TUBE SCH (20:46)
[2021-04-18] MEDS ORDERED: Promethazine HCl 12.5 MG in Sodium Chloride 0.9% 50 ML IVPB SCH (22:15)
[2021-04-19] MEDS: Ondansetron PF 4 MG/2 ML Vial IVP PRN (00:19)
[2021-04-19] MEDS: Lorazepam 0.5 MG TAB PO SCH ×3 (01:35→13:20)
[2021-04-19] MEDS ORDERED: traMADol HCl 50 MG TAB PO SCH (04:45)
[2021-04-19] MEDS ORDERED: Promethazine HCl 25 MG/ML VIAL IM PRN (06:13)
[2021-04-19] MEDS ORDERED: Pantoprazole 40 MG VIAL IVP SCH (06:30)
[2021-04-19] MEDS ORDERED: Scopolamine 1.5 mg/72 hour Patch TD SCH (08:30)
[2021-04-19] MEDS ORDERED: Morphine 2 MG/ML VIAL SLOW IVP PRN (08:31)
[2021-04-19] MEDS: predniSONE 20 MG TAB PO SCH (08:55)
[2021-04-19 09:19] LABS: Lactic Acid 1.5 mmol/L (0.5-2.2)
[2021-04-19 09:23] LABS: #Basophils 0.1 thou/uL (0.0-0.2); #Lymphocytes 1.9 thou/uL (1.20-3.40); #Monocytes 2.2 thou/uL (0.11-0.59); #Neutrophils 11.1 thou/uL (1.40-6.50); %Basophils 0.5 % (0.0-1.0); %Eosinophils 0.2 % (0.0-10.0); %Lymphocytes 12.3 % (21.0-51.0); %Monocytes 14.6 % (0.0-10.0); %Neutrophils 72.5 % (42.0-75.0); Hemoglobin 14.4 g/dL (12.0-16.0); Mean Corpuscular HGB CONC 34.3 g/dL (32.0-36.0); Mean Corpuscular Hemoglobin 30.7 pg (27.0-31.0); Mean Corpuscular Volume 89.5 fL (78.0-98.0); Mean Platelet Volume 7.5 fL (7.4-10.4); Platelet Count 134 thou/uL (130-400); RBC Distribution Width 12.7 % (11.5-14.5); Red Blood Cell (RBC) Count 4.71 mill/uL (4.20-5.40); White Blood Cell (WBC) Count 15.2 thou/uL (4.8-10.8)
[2021-04-19] MEDS: Morphine 4 MG/ML VIAL SLOW IVP PRN (09:43)
[2021-04-19] MEDS: Enoxaparin Sodium 40 MG/0.4 ML SYRINGE SC SCH (09:44)
[2021-04-19] MEDS: Cholecalciferol 1,000 UNITS (25 MCG) TAB PO SCH (09:53)
[2021-04-19] MEDS: guaiFENesin ER 600 MG TAB PO SCH ×2 (09:53→20:58)
[2021-04-19 10:50] LABS: ALT (SGPT) 157 U/L (8-55); AST (SGOT) 139 U/L (5-34); Albumin 3.5 g/dL (3.5-5.0); Alkaline Phosphatase 47 U/L (40-110); BUN (Urea Nitrogen) 17 mg/dL (7.0-18.7); Bilirubin, Total 0.7 mg/dL (0.2-1.2); Calc. Creatinine Clearance 112 mL/min (70-130); Calcium 9.1 mg/dL (7.8-10.44); Carbon Dioxide 26 mmol/L (22-29); Chloride 101 mmol/L (98-107); Globulin 2.6 g/dL (2.4-3.5); Glucose 85 mg/dL (70-105); Lipase 359 U/L (8-78); Potassium 3.5 mmol/L (3.5-5.1); Protein, Total 6.1 g/dL (6.0-8.3); Sodium 134 mmol/L (136-145)
[2021-04-19 11:05] LABS: Anion Gap 13 mmol/L (10-20)
[2021-04-19 11:09] LABS: Troponin I Less than 0.010 ng/mL (< 0.028)
[2021-04-19] MEDS ORDERED: Lorazepam 0.5 MG TAB PO PRN (12:34)
[2021-04-19] MEDS: NS 0.9% w/ 20 MEQ KCL 1,000 ML/1,000 ML BAG IV SCH (13:25)
[2021-04-19] MEDS: Montelukast Sodium 10 mg Tablet PER TUBE SCH (20:58)
[2021-04-20] MEDS: Morphine 4 MG/ML VIAL SLOW IVP PRN ×2 (01:25→06:25)
[2021-04-20] MEDS: NS 0.9% w/ 20 MEQ KCL 1,000 ML/1,000 ML BAG IV SCH ×2 (01:28→17:03)
[2021-04-20 06:29] LABS: #Lymphocytes 1.4 thou/uL (1.20-3.40); #Monocytes 1.6 thou/uL (0.11-0.59); %Basophils 0.4 % (0.0-1.0); %Eosinophils 0.2 % (0.0-10.0); %Lymphocytes 12.7 % (21.0-51.0); %Monocytes 14.7 % (0.0-10.0); Hemoglobin 12.4 g/dL (12.0-16.0); Mean Corpuscular HGB CONC 33.8 g/dL (32.0-36.0); Mean Corpuscular Hemoglobin 30.1 pg (27.0-31.0); Mean Corpuscular Volume 89.1 fL (78.0-98.0); Mean Platelet Volume 7.5 fL (7.4-10.4); Platelet Count 160 thou/uL (130-400); RBC Distribution Width 12.4 % (11.5-14.5); Red Blood Cell (RBC) Count 4.13 mill/uL (4.20-5.40); White Blood Cell (WBC) Count 11.1 thou/uL (4.8-10.8)
[2021-04-20 06:49] LABS: ALT (SGPT) 166 U/L (8-55); AST (SGOT) 113 U/L (5-34); Albumin 3.4 g/dL (3.5-5.0); Alkaline Phosphatase 45 U/L (40-110); Anion Gap 10 mmol/L (10-20); BUN (Urea Nitrogen) 13 mg/dL (7.0-18.7); Calc. Creatinine Clearance 108 mL/min (70-130); Carbon Dioxide 25 mmol/L (22-29); Chloride 101 mmol/L (98-107); Globulin 2.7 g/dL (2.4-3.5); Glucose 76 mg/dL (70-105); Lipase 193 U/L (8-78); Potassium 3.9 mmol/L (3.5-5.1); Protein, Total 6.1 g/dL (6.0-8.3); Sodium 132 mmol/L (136-145)
[2021-04-20] MEDS: Pantoprazole 40 MG VIAL IVP SCH (08:55)
[2021-04-20] MEDS: predniSONE 20 MG TAB PO SCH (08:55)
[2021-04-20] MEDS: Cholecalciferol 1,000 UNITS (25 MCG) TAB PO SCH (09:09)
[2021-04-20] MEDS: Enoxaparin Sodium 40 MG/0.4 ML SYRINGE SC SCH (09:10)
[2021-04-20] MEDS: guaiFENesin ER 600 MG TAB PO SCH ×2 (09:10→20:42)
[2021-04-20] MEDS: Ketorolac Tromethamine 30 MG/ML VIAL IVP PRN ×2 (12:00→20:44)
[2021-04-20 13:02] VITALS: BMI 15.1
[2021-04-20] MEDS: Montelukast Sodium 10 mg Tablet PER TUBE SCH (20:43)
[2021-04-21] MEDS: Ketorolac Tromethamine 30 MG/ML VIAL IVP PRN (02:34)
[2021-04-21] MEDS: Ondansetron PF 4 MG/2 ML Vial IVP PRN (02:34)
[2021-04-21] MEDS: Acetaminophen 325 MG TAB PO PRN (02:42)
[2021-04-21] MEDS: NS 0.9% w/ 20 MEQ KCL 1,000 ML/1,000 ML BAG IV SCH (05:01)
[2021-04-21] MEDS ORDERED: predniSONE 20 MG TAB PO SCH (08:00)
[2021-04-21] MEDS ORDERED: Enoxaparin Sodium 30 MG/0.3 ML SYRINGE SC SCH (09:00)
[2021-04-21] MEDS: guaiFENesin ER 600 MG TAB PO SCH (09:36)
[2021-04-21] MEDS: Cholecalciferol 1,000 UNITS (25 MCG) TAB PO SCH (09:36)
[2021-04-21] MEDS: Pantoprazole 40 MG VIAL IVP SCH (09:39)
[2021-04-21 11:41] VITALS: BP 139/87; TEMP 98.2
== END 2021-04-21 16:13 | DRG 870 ==
LOC: ERS 17:49 → CCU 17:57 → T4-A 04-17 15:46
PROVIDERS: ADMIT Student in an Organized Health Care Education/Training Program; ATTEND Family Medicine
PROC: 5A1955Z Respiratory Ventilation, Greater than 96 Consecutive Hours (ICD-10-PCS; principal; 2021-04-07)
PROC: 0BH17EZ Insertion of Endotracheal Airway into Trachea, Via Natural or Artificial Opening (ICD-10-PCS; 2021-04-07)
PROC: 3E043XZ Introduction of Vasopressor into Central Vein, Percutaneous Approach (ICD-10-PCS; 2021-04-07)
PROC: 0D9670Z Drainage of Stomach with Drainage Device, Via Natural or Artificial Opening (ICD-10-PCS; 2021-04-07)
PROC: 02HV33Z Insertion of Infusion Device into Superior Vena Cava, Percutaneous Approach (ICD-10-PCS; 2021-04-07)
PROC: B548ZZA Ultrasonography of Superior Vena Cava, Guidance (ICD-10-PCS; 2021-04-07)
PROC: 3E0G76Z Introduction of Nutritional Substance into Upper GI, Via Natural or Artificial Opening (ICD-10-PCS; 2021-04-20)
DX: A41.9 Sepsis, unspecified organism (principal); J96.01 Acute respiratory failure with hypoxia; J45.902 Unspecified asthma with status asthmaticus; E23.0 Hypopituitarism; E87.3 Alkalosis; J45.901 Unspecified asthma with (acute) exacerbation; G93.40 Encephalopathy, unspecified; Z20.822 Contact with and (suspected) exposure to COVID-19; F41.9 Anxiety disorder, unspecified; F31.9 Bipolar disorder, unspecified; F20.9 Schizophrenia, unspecified; E87.6 Hypokalemia; F15.10 Other stimulant abuse, uncomplicated; F12.10 Cannabis abuse, uncomplicated; F17.210 Nicotine dependence, cigarettes, uncomplicated; E03.8 Other specified hypothyroidism; G62.9 Polyneuropathy, unspecified; E07.81 Sick-euthyroid syndrome; E55.9 Vitamin D deficiency, unspecified; Z78.1 Physical restraint status; Z86.16 Personal history of COVID-19; Z79.899 Other long term (current) drug therapy; Z71.51 Drug abuse counseling and surveillance of drug abuser; F19.10 Other psychoactive substance abuse, uncomplicated
CPT/HCPCS: 36415; 36416; 36556; 36600; 51702; 70450; 71045; 71275; 74177; 76705; 80048; 80053; 80306; 81003; 81015; 82024; 82150; 82306; 82805; 83001; 83002; 83003; 83605; 83690; 83735; 84439; 84443; 84481; 84484; 84703; 85025; 87040; 93005; 93010; 94002; 94003; 94640; 94644; 96365; 96366; C9113; J0456; J0692; J0696; J1120; J1650; J1885; J2060; J2185; J2270; J2405; J2550; J2704; J2920; J2930; J3010; J3370; J3475; J3480; J3490; J7030; J7050; J7512; J7611; J7620; Q0162; Q9967; U0002; U0003; U0005

== ENCOUNTER 2021-05-23 14:33 | Emergency (ER) | payer OTHER ==
[2021-05-23] MEDS ORDERED: Ibuprofen 200 MG TAB ONE (14:56)
[2021-05-23] MEDS ORDERED: Acetaminophen 325 MG TAB ONE (14:56)
[2021-05-23 16:34] LABS: Hemoglobin 12.7 g/dL (12.0-16.0); Mean Corpuscular HGB CONC 35.1 g/dL (32.0-36.0); Mean Corpuscular Hemoglobin 31.6 pg (27.0-31.0); Mean Corpuscular Volume 89.9 fL (78.0-98.0); Platelet Count 157 thou/uL (130-400); RBC Distribution Width 13.3 % (11.5-14.5); Red Blood Cell (RBC) Count 4.02 mill/uL (4.20-5.40); White Blood Cell (WBC) Count 7.7 thou/uL (4.8-10.8)
[2021-05-23 16:39] LABS: Bilirubin Negative (Negative); Blood, Urine Negative (Negative); Clarity Clear (Clear); Glucose, Urine (Dipstick) Normal (Negative); Ketone, Urine Negative (Negative); Leukocyte Negative Leu/uL (Negative); Nitrite Negative (Negative); Protein, Urine (Dipstick) Negative (Neg-Trace); Specific Gravity, Urine 1.013 (1.002-1.036); Urobilinogen Normal mg/dL (Less than 2)
[2021-05-23 16:47] LABS: Band 2 % (5-11); Eosinophils 6 % (0-10); Lymphocytes 4 % (21-51); MDiff Complete? YES; Monocytes 9 % (0-10); Neutrophil 79 % (42-75); Platelet Morphology Comment Appears Adequate; RBC Morphology Normal
[2021-05-23 16:55] LABS: ALT (SGPT) 12 U/L (8-55); AST (SGOT) 15 U/L (5-34); Albumin 3.8 g/dL (3.5-5.0); Alkaline Phosphatase 43 U/L (40-110); Anion Gap 10 mmol/L (10-20); BUN (Urea Nitrogen) 4 mg/dL (7.0-18.7); Bilirubin, Total 0.4 mg/dL (0.2-1.2); Calc. Creatinine Clearance 0 mL/min (70-130); Calcium 9.4 mg/dL (7.8-10.44); Carbon Dioxide 26 mmol/L (22-29); Chloride 103 mmol/L (98-107); Globulin 2.9 g/dL (2.4-3.5); Glucose 97 mg/dL (70-105); Potassium 3.7 mmol/L (3.5-5.1); Protein, Total 6.7 g/dL (6.0-8.3); Sodium 135 mmol/L (136-145)
[2021-05-24 00:21] LABS: SARS-CoV-2 PCR by NAA DETECTED (NotDetected)
== END 2021-05-23 18:03 | disposition home or self-care (01) ==
LOC: ERS 14:33
DX: U07.1 COVID-19 (principal); J45.909 Unspecified asthma, uncomplicated; Z86.16 Personal history of COVID-19
CPT/HCPCS: 71045; 80053; 81003; 83605; 85025; 87086; 87804; 94760; U0003; U0005

== ENCOUNTER 2021-07-12 06:25 | Inpatient (IN) | payer OTHER ==
[2021-07-12] MEDS ORDERED: methylPREDNISolone Sod Succ/PF 125 MG/2 ML VIAL ONE (06:32)
[2021-07-12] MEDS ORDERED: Magnesium 2 GM/50 ML BAG (IN WATER) ONE (06:32)
[2021-07-12] MEDS ORDERED: Lorazepam 2 MG/ML VIAL ONE (06:37)
[2021-07-12 07:22] LABS: ALT (SGPT) 9 U/L (8-55); AST (SGOT) 18 U/L (5-34); Albumin 4.9 g/dL (3.5-5.0); Alkaline Phosphatase 59 U/L (40-110); Anion Gap 10 mmol/L (10-20); BUN (Urea Nitrogen) 4 mg/dL (7.0-18.7); Bilirubin, Total 0.7 mg/dL (0.2-1.2); Calc. Creatinine Clearance 0 mL/min (70-130); Calcium 9.7 mg/dL (7.8-10.44); Carbon Dioxide 27 mmol/L (22-29); Chloride 106 mmol/L (98-107); Globulin 3.8 g/dL (2.4-3.5); Glucose 113 mg/dL (70-105); Potassium 3.8 mmol/L (3.5-5.1); Protein, Total 8.7 g/dL (6.0-8.3); Sodium 139 mmol/L (136-145)
[2021-07-12 07:28] LABS: #Eosinphils 0.2 thou/uL (0.0-0.7); #Lymphocytes 1.4 thou/uL (1.20-3.40); #Monocytes 0.9 thou/uL (0.11-0.59); #Neutrophils 3.7 thou/uL (1.40-6.50); %Basophils 0.5 % (0.0-1.0); %Eosinophils 3.8 % (0.0-10.0); %Lymphocytes 22.4 % (21.0-51.0); %Monocytes 14.6 % (0.0-10.0); %Neutrophils 58.8 % (42.0-75.0); Hemoglobin 17.6 g/dL (12.0-16.0); Mean Corpuscular HGB CONC 32.9 g/dL (32.0-36.0); Mean Corpuscular Hemoglobin 30.5 pg (27.0-31.0); Mean Corpuscular Volume 92.8 fL (78.0-98.0); Mean Platelet Volume 8.4 fL (7.4-10.4); Platelet Count 202 thou/uL (130-400); RBC Distribution Width 12.9 % (11.5-14.5); Red Blood Cell (RBC) Count 5.76 mill/uL (4.20-5.40); White Blood Cell (WBC) Count 6.2 thou/uL (4.8-10.8)
[2021-07-12 07:44] LABS: SARS-CoV-2 NAA Rapid Test Not Detected (NotDetected)
[2021-07-12] MEDS ORDERED: Ondansetron PF 4 MG/2 ML Vial IVP PRN (08:38)
[2021-07-12] MEDS ORDERED: Acetaminophen 325 MG TAB PO PRN (08:38)
[2021-07-12] MEDS ORDERED: Lorazepam 2 MG/ML VIAL SLOW IVP PRN (08:42)
[2021-07-12] MEDS ORDERED: Albuterol Sulfate 2.5 mg/3 ml Neb NEB PRN (08:42)
[2021-07-12] MEDS ORDERED: Enoxaparin Sodium 40 MG/0.4 ML SYRINGE SC SCH (08:45)
[2021-07-12] MEDS ORDERED: Enoxaparin Sodium 40 MG/0.4 ML SYRINGE ONE (10:22)
[2021-07-12] MEDS ORDERED: Lactated Ringer's 1,000 ML IV SCH (10:45)
[2021-07-12] MEDS ORDERED: methylPREDNISolone Sod Succ 40 MG VIAL ONE (11:33)
[2021-07-12] MEDS: methylPREDNISolone Sod Succ 40 MG VIAL IVP SCH ×3 (11:47→23:59)
[2021-07-12 13:06] VITALS: BMI 18.1
[2021-07-13 04:56] LABS: #Lymphocytes 0.5 thou/uL (1.20-3.40); #Monocytes 0.6 thou/uL (0.11-0.59); %Basophils 0.2 % (0.0-1.0); %Eosinophils 0.1 % (0.0-10.0); %Lymphocytes 3.8 % (21.0-51.0); %Monocytes 5.2 % (0.0-10.0); %Neutrophils 90.7 % (42.0-75.0); Hemoglobin 13.6 g/dL (12.0-16.0); Mean Corpuscular HGB CONC 32.5 g/dL (32.0-36.0); Mean Corpuscular Hemoglobin 30.4 pg (27.0-31.0); Mean Corpuscular Volume 93.5 fL (78.0-98.0); Platelet Count 222 thou/uL (130-400); RBC Distribution Width 12.6 % (11.5-14.5); Red Blood Cell (RBC) Count 4.48 mill/uL (4.20-5.40); White Blood Cell (WBC) Count 12.2 thou/uL (4.8-10.8)
[2021-07-13 05:14] LABS: Anion Gap 20 mmol/L (10-20); BUN (Urea Nitrogen) 7 mg/dL (7.0-18.7); Calc. Creatinine Clearance 97 mL/min (70-130); Calcium 9.5 mg/dL (7.8-10.44); Carbon Dioxide 15 mmol/L (22-29); Chloride 106 mmol/L (98-107); Glucose 119 mg/dL (70-105); Potassium 4.1 mmol/L (3.5-5.1); Sodium 137 mmol/L (136-145)
[2021-07-13] MEDS: methylPREDNISolone Sod Succ 40 MG VIAL IVP SCH ×2 (05:30→12:52)
[2021-07-13] MEDS ORDERED: Enoxaparin Sodium 40 MG/0.4 ML SYRINGE SC SCH (09:00)
[2021-07-13] MEDS ORDERED: Benzonatate 100 MG CAP PO PRN (10:51)
[2021-07-13] MEDS ORDERED: Albuterol Sulfate 2.5 mg/3 ml Neb NEB PRN (11:30)
[2021-07-13] MEDS ORDERED: Budesonide 0.25 MG/2 ML NEB INH SCH ×2 (11:30→18:30)
[2021-07-13 16:00] VITALS: BP 116/63; TEMP 97.8
== END 2021-07-13 15:35 | disposition home or self-care (01) | DRG 189 ==
LOC: ERS 06:25 → ERHOLD 08:38 → OBSVTOIN 10:42 → INTOOBSV 10:42 → 2NO 12:02
PROVIDERS: ADMIT Hospitalist; ATTEND Internal Medicine
DX: J96.01 Acute respiratory failure with hypoxia (principal); J45.901 Unspecified asthma with (acute) exacerbation; Z20.822 Contact with and (suspected) exposure to COVID-19; F41.9 Anxiety disorder, unspecified; F17.210 Nicotine dependence, cigarettes, uncomplicated; Z79.899 Other long term (current) drug therapy
CPT/HCPCS: 36415; 71045; 80048; 80053; 83880; 84443; 84484; 85025; 85379; 93005; 94640; 96365; 96375; G0378; J1650; J2060; J2920; J2930; J3475; J7120; J7620; U0002

== ENCOUNTER 2022-03-15 12:40 | Emergency (ER) | payer OTHER ==
[2022-03-15] MEDS ORDERED: Ondansetron ODT 4 MG TAB ONE (15:05)
[2022-03-15 15:15] LABS: #Eosinphils 0.1 thou/uL (0.0-0.7); #Lymphocytes 2.4 thou/uL (1.20-3.40); #Monocytes 1.2 thou/uL (0.11-0.59); %Basophils 0.4 % (0.0-1.0); %Eosinophils 0.7 % (0.0-10.0); %Monocytes 9.6 % (0.0-10.0); %Neutrophils 70.3 % (42.0-75.0); Hemoglobin 14.8 g/dL (12.0-16.0); Mean Corpuscular HGB CONC 33.5 g/dL (32.0-36.0); Mean Corpuscular Hemoglobin 28.7 pg (27.0-31.0); Mean Corpuscular Volume 85.5 fL (78.0-98.0); Mean Platelet Volume 8.1 fL (7.4-10.4); Platelet Count 261 thou/uL (130-400); RBC Distribution Width 12.3 % (11.5-14.5); Red Blood Cell (RBC) Count 5.15 mill/uL (4.20-5.40); White Blood Cell (WBC) Count 12.8 thou/uL (4.8-10.8)
[2022-03-15 15:24] LABS: BHCG - Serum Negative (NEGATIVE); Pregs Control Background? CLEAR/WHITE (CLR/WHITE); Pregs Control Bar Appear? YES (CONTROL BAR)
[2022-03-15 15:35] LABS: ALT (SGPT) 12 U/L (8-55); AST (SGOT) 19 U/L (5-34); Albumin 4.9 g/dL (3.5-5.0); Alkaline Phosphatase 54 U/L (40-110); Anion Gap 20 mmol/L (10-20); BUN (Urea Nitrogen) 14 mg/dL (7.0-18.7); Bilirubin, Total 1.4 mg/dL (0.2-1.2); Calc. Creatinine Clearance 0 mL/min (70-130); Calcium 9.7 mg/dL (7.8-10.44); Carbon Dioxide 16 mmol/L (22-29); Chloride 99 mmol/L (98-107); Estimated GFR 89; Globulin 3.6 g/dL (2.4-3.5); Glucose 77 mg/dL (70-105); Magnesium 2.2 mg/dL (1.6-2.6); Potassium 3.2 mmol/L (3.5-5.1); Protein, Total 8.5 g/dL (6.0-8.3); Sodium 132 mmol/L (136-145)
[2022-03-15] MEDS ORDERED: Acetaminophen 325 MG TAB ONE (15:44)
[2022-03-15] MEDS ORDERED: Potassium Chloride 20 MEQ TAB ONE (16:49)
== END 2022-03-15 16:55 ==
LOC: ERS 12:40
DX: R07.9 Chest pain, unspecified (principal); E87.6 Hypokalemia; R11.2 Nausea with vomiting, unspecified; F17.210 Nicotine dependence, cigarettes, uncomplicated
CPT/HCPCS: 36415; 71045; 80053; 83735; 84484; 84703; 85025; 93005; Q0162

== ENCOUNTER 2022-04-19 01:50 | Emergency (ER) | payer OTHER ==
[2022-04-19] MEDS ORDERED: methylPREDNISolone Sod Succ/PF 125 MG/2 ML VIAL ONE (02:48)
[2022-04-19] MEDS ORDERED: Albuterol Sulfate 2.5 mg/0.5 ml Neb ONE (03:45)
== END 2022-04-19 05:06 | disposition home or self-care (01) ==
LOC: ERS 01:50
DX: J45.901 Unspecified asthma with (acute) exacerbation (principal); F17.210 Nicotine dependence, cigarettes, uncomplicated
CPT/HCPCS: 71045; 94640; 96374; J2930; J7611; J7620

== ENCOUNTER 2022-04-20 12:08 | Inpatient (IN) | payer OTHER ==
[2022-04-20] MEDS ORDERED: Magnesium 2 GM/50 ML BAG (IN WATER) ONE (12:49)
[2022-04-20] MEDS ORDERED: methylPREDNISolone Sod Succ/PF 125 MG/2 ML VIAL ONE (12:49)
[2022-04-20] MEDS ORDERED: Ipratropium Bromide 2.5 ml Neb ONE ×2 (12:53→14:03)
[2022-04-20] MEDS ORDERED: Albuterol Sulfate 2.5 mg/3 ml Neb ONE ×3 (12:53→21:38)
[2022-04-20 12:58] LABS: #Lymphocytes 0.8 thou/uL (1.20-3.40); #Monocytes 0.5 thou/uL (0.11-0.59); #Neutrophils 8.5 thou/uL (1.40-6.50); %Basophils 0.2 % (0.0-1.0); %Eosinophils 0.4 % (0.0-10.0); %Lymphocytes 8.4 % (21.0-51.0); %Monocytes 5.3 % (0.0-10.0); %Neutrophils 85.8 % (42.0-75.0); Hemoglobin 14.7 g/dL (12.0-16.0); Mean Corpuscular HGB CONC 32.8 g/dL (32.0-36.0); Mean Corpuscular Hemoglobin 29.7 pg (27.0-31.0); Mean Corpuscular Volume 90.5 fl (78.0-98.0); Mean Platelet Volume 7.9 fL (7.4-10.4); Platelet Count 219 10x3/uL (130-400); RBC Distribution Width 13.7 % (11.5-14.5); Red Blood Cell (RBC) Count 4.97 mill/uL (4.20-5.40); White Blood Cell (WBC) Count 9.9 10x3/uL (4.8-10.8)
[2022-04-20 13:22] LABS: ALT (SGPT) 15 U/L (8-55); AST (SGOT) 18 U/L (5-34); Albumin 4.7 g/dL (3.5-5.0); Alkaline Phosphatase 58 U/L (40-110); Anion Gap 17 mmol/L (10-20); BUN (Urea Nitrogen) 9 mg/dL (7.0-18.7); Bilirubin, Total 0.5 mg/dL (0.2-1.2); Calc. Creatinine Clearance 0 mL/min (70-130); Calcium 9.9 mg/dL (7.8-10.44); Carbon Dioxide 23 mmol/L (22-29); Chloride 102 mmol/L (98-107); Estimated GFR 101; Globulin 3.8 g/dL (2.4-3.5); Glucose 100 mg/dL (70-105); Potassium 3.7 mmol/L (3.5-5.1); Protein, Total 8.5 g/dL (6.0-8.3); Sodium 138 mmol/L (136-145)
[2022-04-20 16:03] LABS: Analyzer IN Cardio ER; Base Excess (BEa) -3.6 mEq/L (-2.0 to +3.0); CO2 Tension 31.7 mmHg (35.0-45.0); Calcium, Ionized (arterial) 1.12 mmol/L (1.12-1.30); Carboxyhemoglobin (COHb) 0.2 gm% (0.0-3.0); Hemoglobin (Hb) 13.3 g/dL (12.0-16.0); Potassium - ABG Lab 3.59 mmol/L (3.70-5.30); pH, Arterial 7.42 (7.35-7.45)
[2022-04-20 16:04] LABS: Puncture Site RRA
[2022-04-20 16:05] LABS: ALV-art Gradient 125.055 mmHg (0-20)
[2022-04-20] MEDS ORDERED: Ondansetron ODT 4 MG TAB PO PRN (17:31)
[2022-04-20] MEDS ORDERED: Nicotine 14 MG PATCH TD PRN (17:31)
[2022-04-20] MEDS ORDERED: Albuterol Sulfate 2.5 mg/3 ml Neb NEB PRN (17:47)
[2022-04-20] MEDS ORDERED: LORazepam 2 MG/ML SYR.(CARPUJECT) ONE (18:05)
[2022-04-20] MEDS ORDERED: cefTRIAXone\\ROCEPHIN 2 GM VIAL ONE (18:06)
[2022-04-20 18:37] LABS: SARS-CoV-2 NAA Rapid Test Not Detected (NotDetected)
[2022-04-20] MEDS ORDERED: Albuterol Sulfate 2.5 mg/3 ml Neb NEB SCH (19:00)
[2022-04-20] MEDS ORDERED: Ipratropium Bromide 2.5 ml Neb NEB SCH (19:00)
[2022-04-20] MEDS ORDERED: Dexmedetomidine In 0.9 % NaCl 100 ML IVPB SCH (21:00)
[2022-04-20] MEDS ORDERED: FENTANYL 50 MCG/ML 1 ML VIAL ONE ×2 (21:08→22:03)
[2022-04-20] MEDS ORDERED: Ketamine 50 MG/ML (10ML VIAL) ONE (21:08)
[2022-04-20] MEDS ORDERED: Succinylcholine 200 MG/10 ml SYRINGE FS ONE (21:09)
[2022-04-20] MEDS ORDERED: EPINEPHrine 1 MG/10 ML Abboject SYRINGE ONE (21:14)
[2022-04-20] MEDS ORDERED: EPINEPHrine 1 MG/ML VIAL ONE (21:16)
[2022-04-20] MEDS ORDERED: Propofol 1,000 MG/100 ML VIAL IV ONE (21:28)
[2022-04-20] MEDS ORDERED: Fentanyl CADD 100 ML IV SCH (22:15)
[2022-04-20] MEDS ORDERED: HYDROmorphone 0.5 MG/0.5 ML SYRINGE ONE (22:23)
[2022-04-20 22:50] LABS: Actual Bicarbonate (HCO3a) 18.7 mEq/L (22-28); Base Excess (BEa) -8.2 mEq/L (-2.0 to +3.0); CO2 Tension 43.7 mmHg (35.0-45.0); Calcium, Ionized (arterial) 1.08 mmol/L (1.12-1.30); Carboxyhemoglobin (COHb) 0.3 gm% (0.0-3.0); Hemoglobin (Hb) 12.2 g/dL (12.0-16.0); O2 Tension (PaO2), arterial 103.1 mmHg (80.0-100.0); Potassium - ABG Lab 3.99 mmol/L (3.70-5.30); pH, Arterial 7.25 (7.35-7.45)
[2022-04-20 22:52] LABS: ALV-art Gradient 198.775 mmHg (0-20); Puncture Site LRA
[2022-04-20] MEDS ORDERED: Fentanyl CADD 100 ML ONE (23:26)
[2022-04-20] MEDS ORDERED: DISCONTINUE PREVIOUS NARCOTIC PAIN MEDICATIONS AND BENZODIAZEPINES FS SCH (23:45)
[2022-04-20] MEDS ORDERED: Ventilator Sedation Protocol 1 EACH FS SCH (23:45)
[2022-04-20] MEDS ORDERED: Fentanyl BOLUS 250 ML IVPB PRN (23:45)
[2022-04-20] MEDS ORDERED: Propofol BOLUS 1,000 MG/100 ML VIAL IV PRN (23:45)
[2022-04-20 23:57] LABS: Actual Bicarbonate (HCO3a) 20.9 mEq/L (22-28); Calcium, Ionized (arterial) 1.12 mmol/L (1.12-1.30); Carboxyhemoglobin (COHb) 0.3 gm% (0.0-3.0); Hemoglobin (Hb) 12.7 g/dL (12.0-16.0); O2 Tension (PaO2), arterial 79.2 mmHg (80.0-100.0); Potassium - ABG Lab 4.23 mmol/L (3.70-5.30)
[2022-04-20 23:58] LABS: CO2 Tension 65.3 mmHg (35.0-45.0); Puncture Site RRA; pH, Arterial 7.12 (7.35-7.45)
[2022-04-21] LABS: ALV-art Gradient 195.675 mmHg (0-20)
[2022-04-21] MEDS ORDERED: Vecuronium 10 MG VIAL ONE (00:04)
[2022-04-21] MEDS ORDERED: Sterile Water 10 ML ONE ×5 (00:05→06:50)
[2022-04-21] MEDS: methylPREDNISolone Sod Succ 40 MG VIAL IVP SCH ×2 (00:17→00:18)
[2022-04-21] MEDS: Lorazepam 2 MG/ML VIAL SLOW IVP SCH ×2 (00:20→10:02)
[2022-04-21] MEDS: cefTRIAXone\\ROCEPHIN 2 GM in Sodium Chloride 0.9% 100 ML IVPB SCH ×2 (00:20→17:01)
[2022-04-21 00:48] LABS: Actual Bicarbonate (HCO3a) 24.1 mEq/L (22-28); Base Excess (BEa) -6.4 mEq/L (-2.0 to +3.0); Carboxyhemoglobin (COHb) 0.3 gm% (0.0-3.0); Hemoglobin (Hb) 12.7 g/dL (12.0-16.0); O2 Tension (PaO2), arterial 134.4 mmHg (80.0-100.0); Potassium - ABG Lab 4.52 mmol/L (3.70-5.30)
[2022-04-21 00:51] LABS: pH, Arterial 7.13 (7.35-7.45)
[2022-04-21 00:52] LABS: CO2 Tension 74.3 mmHg (35.0-45.0); Puncture Site LRA
[2022-04-21] MEDS: Vecuronium 10 MG VIAL IV PRN ×10 (00:52→22:12)
[2022-04-21] MEDS ORDERED: Sodium Chloride 0.9% 1,000 ML IV SCH (01:00)
[2022-04-21] MEDS: Propofol 1,000 MG/100 ML VIAL IV PRN ×5 (01:00→20:21)
[2022-04-21] MEDS ORDERED: Montelukast Sodium 10 mg Tablet PER TUBE SCH (01:15)
[2022-04-21] MEDS ORDERED: methylPREDNISolone Sod Succ/PF 125 MG/2 ML VIAL IVP SCH (01:15)
[2022-04-21] MEDS: Lactated Ringer's 1,000 ML IV SCH ×3 (01:59→20:21)
[2022-04-21 03:41] LABS: Bacteria/HPF None Seen HPF (None Seen); Bilirubin Negative (Negative); Blood, Urine Trace (Negative); CAUTI Indications for Culture Alt mental st,lethar; Clarity Clear (Clear); Glucose, Urine (Dipstick) 70 mg/dL (Negative); Ketone, Urine Negative (Negative); Leukocyte Negative Leu/uL (Negative); Nitrite Negative (Negative); Protein, Urine (Dipstick) 10 mg/dL (Neg-Trace); RBC/HPF 0-3 HPF (0-3); Specific Gravity, Urine 1.016 (1.002-1.036); Squamous Epithelial 0-3 HPF (0-3); Urobilinogen Normal mg/dL (Less than 2); WBC/HPF 0-3 HPF (0-3); pH, Urine 5.5 (5.0-9.0)
[2022-04-21 03:44] LABS: Pregnancy Test - Urine (BHCG) Negative (Negative); Pregu Control Background? CLEAR/WHITE (CLR/WHITE); Pregu Control Bar Appear? YES (CONTROL BAR); Specific Gravity 1.016 (1.002-1.036)
[2022-04-21 03:45] LABS: Urine Culture Reflex No No
[2022-04-21 03:48] LABS: Amphetamine Not Detected (NotDetected); Barbiturates Screen Not Detected (NotDetected); Benzodiazepine Screen Detected (NotDetected); Cocaine Metabolite Screen Detected (NotDetected); Methadone Not Detected (NotDetected); Methamphetamine Not Detected (NotDetected); Opiate Screen Detected (NotDetected); Oxycodone Screen Not Detected (NotDetected); Phencyclidine (PCP) Not Detected (NotDetected); THC/Cannabinoid Screen Detected (NotDetected); Tricyclic Screen Not Detected (NotDetected)
[2022-04-21 04:35] LABS: Anion Gap 11 mmol/L (10-20); BUN (Urea Nitrogen) 6 mg/dL (7.0-18.7); Calc. Creatinine Clearance 131 mL/min (70-130); Calcium 7.2 mg/dL (7.8-10.44); Carbon Dioxide 23 mmol/L (22-29); Chloride 108 mmol/L (98-107); Estimated GFR 122; Glucose 143 mg/dL (70-105); Potassium 5.3 mmol/L (3.5-5.1); Sodium 137 mmol/L (136-145)
[2022-04-21 04:53] LABS: Band 6 % (5-11); Lymphocytes 1 % (21-51); MDiff Complete? YES; Mean Corpuscular HGB CONC 31.3 g/dL (32.0-36.0); Mean Corpuscular Hemoglobin 29.2 pg (27.0-31.0); Mean Corpuscular Volume 93.2 fl (78.0-98.0); Mean Platelet Volume 8.5 fL (7.4-10.4); Monocytes 3 % (0-10); Neutrophil 90 % (42-75); Platelet Count 223 10x3/uL (130-400); RBC Distribution Width 13.6 % (11.5-14.5); Red Blood Cell (RBC) Count 4.12 mill/uL (4.20-5.40); White Blood Cell (WBC) Count 18.9 10x3/uL (4.8-10.8)
[2022-04-21] MEDS: methylPREDNISolone Sod Succ/PF 125 MG/2 ML VIAL IVP SCH ×4 (05:24→23:12)
[2022-04-21] MEDS: Enoxaparin Sodium 40 MG/0.4 ML SYRINGE SC SCH (08:45)
[2022-04-21] MEDS: Pantoprazole 40 MG VIAL IVP SCH (08:48)
[2022-04-21 09:46] LABS: Actual Bicarbonate (HCO3a) 32.2 mEq/L (22-28); Base Excess (BEa) -1.3 mEq/L (-2.0 to +3.0); Calcium, Ionized (arterial) 1.12 mmol/L (1.12-1.30); Carboxyhemoglobin (COHb) 0.1 gm% (0.0-3.0); Hemoglobin (Hb) 12.9 g/dL (12.0-16.0); O2 Tension (PaO2), arterial 132.5 mmHg (80.0-100.0); Potassium - ABG Lab 5.07 mmol/L (3.70-5.30)
[2022-04-21 09:49] LABS: ALV-art Gradient 76.375 mmHg (0-20); CO2 Tension 118.1 mmHg (35.0-45.0); Puncture Site RRA; pH, Arterial 7.05 (7.35-7.45)
[2022-04-21] MEDS ORDERED: Lorazepam 2 MG/ML VIAL SLOW IVP SCH (10:45)
[2022-04-21] MEDS: Midazolam HCl 2 mg/2 ml Vial SLOW IVP PRN ×4 (12:59→22:12)
[2022-04-21] MEDS ORDERED: FLU VACC QS2022-23(6MOS UP)/PF 60 MCG/0.5 ML SYRINGE IM ONE (15:00)
[2022-04-21] MEDS ORDERED: Fentanyl CADD 100 ML ONE (18:02)
[2022-04-21] MEDS: Fentanyl CADD 100 ML IV SCH (18:05)
[2022-04-21] MEDS: Montelukast Sodium 10 mg Tablet PER TUBE SCH (20:21)
[2022-04-22] MEDS: Vecuronium 10 MG VIAL IV PRN ×11 (00:04→22:30)
[2022-04-22] MEDS: Midazolam HCl 2 mg/2 ml Vial SLOW IVP PRN ×10 (00:04→22:30)
[2022-04-22 03:56] LABS: Anion Gap 9 mmol/L (10-20); BUN (Urea Nitrogen) 7 mg/dL (7.0-18.7); Calc. Creatinine Clearance 132 mL/min (70-130); Carbon Dioxide 36 mmol/L (22-29); Chloride 102 mmol/L (98-107); Estimated GFR 122; Glucose 135 mg/dL (70-105); Potassium 4.5 mmol/L (3.5-5.1); Sodium 142 mmol/L (136-145)
[2022-04-22] MEDS: Propofol 1,000 MG/100 ML VIAL IV PRN ×4 (04:24→20:13)
[2022-04-22 04:31] LABS: Band 18 % (5-11); Eosinophils 1 % (0-10); Hemoglobin 11.6 g/dL (12.0-16.0); Lymphocytes 5 % (21-51); MDiff Complete? YES; Mean Corpuscular HGB CONC 31.8 g/dL (32.0-36.0); Mean Corpuscular Hemoglobin 30.8 pg (27.0-31.0); Mean Corpuscular Volume 96.9 fl (78.0-98.0); Mean Platelet Volume 7.8 fL (7.4-10.4); Monocytes 8 % (0-10); Neutrophil 68 % (42-75); Platelet Count 183 10x3/uL (130-400); Platelet Morphology Comment Appears Adequate; RBC Distribution Width 13.3 % (11.5-14.5); RBC Morphology Normal; Red Blood Cell (RBC) Count 3.76 mill/uL (4.20-5.40); White Blood Cell (WBC) Count 13.4 10x3/uL (4.8-10.8)
[2022-04-22] MEDS: Lactated Ringer's 1,000 ML IV SCH ×2 (06:04→15:52)
[2022-04-22] MEDS: methylPREDNISolone Sod Succ/PF 125 MG/2 ML VIAL IVP SCH ×4 (06:08→22:30)
[2022-04-22] MEDS: Enoxaparin Sodium 40 MG/0.4 ML SYRINGE SC SCH (08:00)
[2022-04-22] MEDS: Pantoprazole 40 MG VIAL IVP SCH (08:01)
[2022-04-22 08:32] LABS: Actual Bicarbonate (HCO3a) 41.9 mEq/L (22-28); Base Excess (BEa) 8.1 mEq/L (-2.0 to +3.0); Calcium, Ionized (arterial) 1.16 mmol/L (1.12-1.30); Carboxyhemoglobin (COHb) 0.8 gm% (0.0-3.0); O2 Tension (PaO2), arterial 115.2 mmHg (80.0-100.0); Potassium - ABG Lab 4.03 mmol/L (3.70-5.30)
[2022-04-22 08:55] LABS: CO2 Tension 130.1 mmHg (35.0-45.0); pH, Arterial 7.13 (7.35-7.45)
[2022-04-22 08:56] LABS: ALV-art Gradient 78.675 mmHg (0-20); Puncture Site LR
[2022-04-22] MEDS ORDERED: Fentanyl CADD 100 ML ONE (09:55)
[2022-04-22] MEDS: Fentanyl CADD 100 ML IV SCH (10:02)
[2022-04-22] MEDS ORDERED: Sodium Bicarb 50 MEQ/50 ML VIAL IVP SCH (11:00)
[2022-04-22] MEDS ORDERED: Furosemide 40 MG/4 ML VIAL FS SCH (11:00)
[2022-04-22] MEDS: cefTRIAXone\\ROCEPHIN 2 GM in Sodium Chloride 0.9% 100 ML IVPB SCH (17:08)
[2022-04-22] MEDS: Montelukast Sodium 10 mg Tablet PER TUBE SCH (20:13)
[2022-04-23] MEDS: Vecuronium 10 MG VIAL IV PRN ×12 (00:13→21:56)
[2022-04-23] MEDS: Midazolam HCl 2 mg/2 ml Vial SLOW IVP PRN ×12 (00:13→21:56)
[2022-04-23] MEDS: Fentanyl CADD 100 ML IV SCH ×2 (01:10→18:00)
[2022-04-23] MEDS: Propofol 1,000 MG/100 ML VIAL IV PRN ×2 (01:59→19:39)
[2022-04-23] MEDS: Lactated Ringer's 1,000 ML IV SCH ×2 (03:07→13:39)
[2022-04-23] MEDS: methylPREDNISolone Sod Succ/PF 125 MG/2 ML VIAL IVP SCH ×3 (04:09→17:00)
[2022-04-23 07:53] LABS: Actual Bicarbonate (HCO3a) 57.9 mEq/L (22-28); Base Excess (BEa) 22.9 mEq/L (-2.0 to +3.0); Calcium, Ionized (arterial) 1.13 mmol/L (1.12-1.30); Carboxyhemoglobin (COHb) 0.4 gm% (0.0-3.0); Hemoglobin (Hb) 13.1 g/dL (12.0-16.0); O2 Tension (PaO2), arterial 75.4 mmHg (80.0-100.0); Potassium - ABG Lab 3.57 mmol/L (3.70-5.30); pH, Arterial 7.21 (7.35-7.45)
[2022-04-23] MEDS: Pantoprazole 40 MG VIAL IVP SCH (07:54)
[2022-04-23] MEDS: Enoxaparin Sodium 40 MG/0.4 ML SYRINGE SC SCH (07:54)
[2022-04-23 07:58] LABS: CO2 Tension 147.3 mmHg (35.0-45.0); Puncture Site LRA
[2022-04-23 07:59] LABS: ALV-art Gradient 25.675 mmHg (0-20)
[2022-04-23 08:50] LABS: BUN (Urea Nitrogen) 10 mg/dL (7.0-18.7); Calc. Creatinine Clearance 145 mL/min (70-130); Calcium 8.6 mg/dL (7.8-10.44); Estimated GFR 125; Glucose 135 mg/dL (70-105)
[2022-04-23 09:00] LABS: Anion Gap 15 mmol/L (10-20); Carbon Dioxide 43 mmol/L (22-29); Chloride 92 mmol/L (98-107); Potassium 3.7 mmol/L (3.5-5.1); Sodium 146 mmol/L (136-145)
[2022-04-23 09:02] LABS: #Eosinphils 0.1 thou/uL (0.0-0.7); #Lymphocytes 0.3 thou/uL (1.20-3.40); #Monocytes 0.7 thou/uL (0.11-0.59); %Basophils 0.2 % (0.0-1.0); %Eosinophils 0.6 % (0.0-10.0); %Lymphocytes 3.1 % (21.0-51.0); %Monocytes 7.2 % (0.0-10.0); %Neutrophils 88.9 % (42.0-75.0); Hemoglobin 12.7 g/dL (12.0-16.0); Mean Corpuscular HGB CONC 31.9 g/dL (32.0-36.0); Mean Corpuscular Hemoglobin 31.2 pg (27.0-31.0); Mean Corpuscular Volume 97.7 fl (78.0-98.0); Mean Platelet Volume 7.9 fL (7.4-10.4); Platelet Count 182 10x3/uL (130-400); RBC Distribution Width 12.9 % (11.5-14.5); Red Blood Cell (RBC) Count 4.07 mill/uL (4.20-5.40)
[2022-04-23] MEDS: cefTRIAXone\\ROCEPHIN 2 GM in Sodium Chloride 0.9% 100 ML IVPB SCH (17:00)
[2022-04-23] MEDS ORDERED: Fentanyl CADD 100 ML ONE (17:52)
[2022-04-23] MEDS ORDERED: Sterile Water 10 ML ONE (23:59)
[2022-04-24] MEDS: methylPREDNISolone Sod Succ/PF 125 MG/2 ML VIAL IVP SCH ×5 (00:07→23:04)
[2022-04-24] MEDS: Montelukast Sodium 10 mg Tablet PER TUBE SCH ×2 (00:08→19:38)
[2022-04-24] MEDS: Midazolam HCl 2 mg/2 ml Vial SLOW IVP PRN ×11 (00:08→21:51)
[2022-04-24] MEDS: Vecuronium 10 MG VIAL IV PRN ×12 (00:08→21:51)
[2022-04-24] MEDS: Lactated Ringer's 1,000 ML IV SCH ×3 (00:09→19:46)
[2022-04-24] MEDS ORDERED: Sterile Water 10 ML ONE ×2 (01:54)
[2022-04-24 05:45] LABS: BUN (Urea Nitrogen) 12 mg/dL (7.0-18.7); Calc. Creatinine Clearance 157 mL/min (70-130); Calcium 8.6 mg/dL (7.8-10.44); Estimated GFR 127; Glucose 122 mg/dL (70-105)
[2022-04-24 05:54] LABS: Anion Gap 15 mmol/L (10-20); Carbon Dioxide 46 mmol/L (22-29); Chloride 89 mmol/L (98-107); Potassium 3.2 mmol/L (3.5-5.1); Sodium 147 mmol/L (136-145)
[2022-04-24 06:01] LABS: #Lymphocytes 0.5 thou/uL (1.20-3.40); #Monocytes 0.9 thou/uL (0.11-0.59); #Neutrophils 6.1 thou/uL (1.40-6.50); %Eosinophils 0.4 % (0.0-10.0); %Lymphocytes 6.6 % (21.0-51.0); %Monocytes 12.5 % (0.0-10.0); %Neutrophils 80.6 % (42.0-75.0); Hemoglobin 11.5 g/dL (12.0-16.0); Mean Corpuscular Hemoglobin 29.4 pg (27.0-31.0); Mean Corpuscular Volume 97.9 fl (78.0-98.0); Platelet Count 192 10x3/uL (130-400); RBC Distribution Width 12.6 % (11.5-14.5); Red Blood Cell (RBC) Count 3.93 mill/uL (4.20-5.40); White Blood Cell (WBC) Count 7.5 10x3/uL (4.8-10.8)
[2022-04-24 06:02] LABS: Band 23 % (5-11); Hypochromia SLIGHT = 6-15 cells (100X) (0-5/hpf); Lymphocytes 8 % (21-51); MDiff Complete? YES; Monocytes 8 % (0-10); Neutrophil 59 % (42-75); Platelet Morphology Comment Appears Adequate; Reactive Lymphocytes 2 % (0-10)
[2022-04-24] MEDS: Propofol 1,000 MG/100 ML VIAL IV PRN ×4 (06:13→23:04)
[2022-04-24 07:25] LABS: Base Excess (BEa) 29.6 mEq/L (-2.0 to +3.0); Calcium, Ionized (arterial) 1.12 mmol/L (1.12-1.30); Carboxyhemoglobin (COHb) 0.8 gm% (0.0-3.0); Hemoglobin (Hb) 12.8 g/dL (12.0-16.0); O2 Tension (PaO2), arterial 68.4 mmHg (80.0-100.0); Potassium - ABG Lab 3.09 mmol/L (3.70-5.30); pH, Arterial 7.24 (7.35-7.45)
[2022-04-24] MEDS: Pantoprazole 40 MG VIAL IVP SCH (08:08)
[2022-04-24] MEDS: Enoxaparin Sodium 40 MG/0.4 ML SYRINGE SC SCH (08:08)
[2022-04-24 08:49] LABS: CO2 Tension 154.1 mmHg (35.0-45.0); Puncture Site LRA
[2022-04-24 08:50] LABS: ALV-art Gradient 24.175 mmHg (0-20)
[2022-04-24] MEDS ORDERED: Fentanyl CADD 100 ML ONE (10:33)
[2022-04-24] MEDS: Fentanyl CADD 100 ML IV SCH (10:45)
[2022-04-24] MEDS ORDERED: Electrolyte Replacement Protocol 1 EACH FS SCH (13:00)
[2022-04-24] MEDS ORDERED: Potassium Bicarbonate/Cit Ac 20 MEQ TAB PER TUBE SCH (14:30)
[2022-04-24] MEDS: cefTRIAXone\\ROCEPHIN 2 GM in Sodium Chloride 0.9% 100 ML IVPB SCH (18:09)
[2022-04-25] MEDS: Midazolam HCl 2 mg/2 ml Vial SLOW IVP PRN ×2 (01:56→05:09)
[2022-04-25] MEDS: Vecuronium 10 MG VIAL IV PRN ×2 (01:56→05:09)
[2022-04-25] MEDS: Fentanyl CADD 100 ML IV SCH ×2 (03:02→22:36)
[2022-04-25] MEDS: Propofol 1,000 MG/100 ML VIAL IV PRN ×3 (03:38→16:05)
[2022-04-25 04:36] LABS: Anion Gap 9 mmol/L (10-20); BUN (Urea Nitrogen) 10 mg/dL (7.0-18.7); Calc. Creatinine Clearance 109 mL/min (70-130); Calcium 8.6 mg/dL (7.8-10.44); Carbon Dioxide 26 mmol/L (22-29); Chloride 103 mmol/L (98-107); Estimated GFR 109; Glucose 124 mg/dL (70-105); Potassium 4.1 mmol/L (3.5-5.1); Sodium 134 mmol/L (136-145)
[2022-04-25 05:06] LABS: Band 2 % (5-11); Burr Cells SLIGHT = 2-5 cells (100X) (0-1/hpf); Eosinophils 1 % (0-10); Hemoglobin 10.2 g/dL (12.0-16.0); Hypochromia SLIGHT = 6-15 cells (100X) (0-5/hpf); Large Platelets SLIGHT; Lymphocytes 20 % (21-51); MDiff Complete? YES; Macrocytosis SLIGHT = 6-15 cells (100X) (0-5/hpf); Mean Corpuscular HGB CONC 30.3 g/dL (32.0-36.0); Mean Platelet Volume 7.1 fL (7.4-10.4); Monocytes 17 % (0-10); Neutrophil 59 % (42-75); Ovalocytes SLIGHT = 2-5 cells (100X) (0-1/hpf); Platelet Count 410 10x3/uL (130-400); Platelet Morphology Comment Appears Increased; Polychromasia SLIGHT = 2-3 cells (100X) (0-2/hpf); RBC Distribution Width 13.8 % (11.5-14.5); Red Blood Cell (RBC) Count 3.29 mill/uL (4.20-5.40); Target Cells SLIGHT = 2-5 cells (100X) (0-1/hpf); White Blood Cell (WBC) Count 10.2 10x3/uL (4.8-10.8)
[2022-04-25] MEDS: methylPREDNISolone Sod Succ/PF 125 MG/2 ML VIAL IVP SCH ×3 (05:09→17:12)
[2022-04-25] MEDS: Lactated Ringer's 1,000 ML IV SCH (06:22)
[2022-04-25 07:40] LABS: Actual Bicarbonate (HCO3a) 61.3 mEq/L (22-28); Base Excess (BEa) 29.2 mEq/L (-2.0 to +3.0); Carboxyhemoglobin (COHb) 0.7 gm% (0.0-3.0); Hemoglobin (Hb) 12.3 g/dL (12.0-16.0); O2 Tension (PaO2), arterial 109.1 mmHg (80.0-100.0); Potassium - ABG Lab 3.02 mmol/L (3.70-5.30); pH, Arterial 7.36 (7.35-7.45)
[2022-04-25 07:42] LABS: CO2 Tension 112.2 mmHg (35.0-45.0); Puncture Site LRA
[2022-04-25] MEDS: Enoxaparin Sodium 40 MG/0.4 ML SYRINGE SC SCH (08:05)
[2022-04-25] MEDS: Pantoprazole 40 MG VIAL IVP SCH (08:05)
[2022-04-25] MEDS ORDERED: Magnesium 2 GM/50 ML(in water) 2 GM in Premix Bag 1 BAG IVPB SCH (10:00)
[2022-04-25] MEDS: Acetaminophen 325 MG TAB PO PRN (14:13)
[2022-04-25] MEDS: cefTRIAXone\\ROCEPHIN 2 GM in Sodium Chloride 0.9% 100 ML IVPB SCH (17:13)
[2022-04-25] MEDS: Azithromycin 500 MG in Sodium Chloride 0.9% 250 ML 250 ML IVPB SCH (18:07)
[2022-04-25] MEDS: Montelukast Sodium 10 mg Tablet PER TUBE SCH (20:52)
[2022-04-26] MEDS: Propofol 1,000 MG/100 ML VIAL IV PRN ×2 (00:06→06:03)
[2022-04-26] MEDS: methylPREDNISolone Sod Succ/PF 125 MG/2 ML VIAL IVP SCH ×5 (00:07→23:49)
[2022-04-26 04:11] LABS: BUN (Urea Nitrogen) 19 mg/dL (7.0-18.7); Band 14 % (5-11); Calc. Creatinine Clearance 137 mL/min (70-130); Calcium 9.2 mg/dL (7.8-10.44); Estimated GFR 124; Glucose 174 mg/dL (70-105); Hemoglobin 12.1 g/dL (12.0-16.0); Lymphocytes 23 % (21-51); MDiff Complete? YES; Mean Corpuscular HGB CONC 30.5 g/dL (32.0-36.0); Mean Corpuscular Volume 95.2 fl (78.0-98.0); Mean Platelet Volume 7.7 fL (7.4-10.4); Neutrophil 63 % (42-75); Platelet Count 248 10x3/uL (130-400); Platelet Morphology Comment Appears Adequate; RBC Distribution Width 12.8 % (11.5-14.5); RBC Morphology Normal; Red Blood Cell (RBC) Count 4.17 mill/uL (4.20-5.40); White Blood Cell (WBC) Count 13.2 10x3/uL (4.8-10.8)
[2022-04-26 04:20] LABS: Anion Gap 16 mmol/L (10-20); Carbon Dioxide 37 mmol/L (22-29); Chloride 97 mmol/L (98-107); Potassium 2.8 mmol/L (3.5-5.1); Sodium 147 mmol/L (136-145)
[2022-04-26 06:43] LABS: Actual Bicarbonate (HCO3a) 45.8 mEq/L (22-28); Base Excess (BEa) 19.3 mEq/L (-2.0 to +3.0); CO2 Tension 59.5 mmHg (35.0-45.0); Calcium, Ionized (arterial) 1.12 mmol/L (1.12-1.30); Carboxyhemoglobin (COHb) 0.6 gm% (0.0-3.0); Hemoglobin (Hb) 13.3 g/dL (12.0-16.0); O2 Tension (PaO2), arterial 95.6 mmHg (80.0-100.0); Potassium - ABG Lab 2.97 mmol/L (3.70-5.30)
[2022-04-26 06:45] LABS: ALV-art Gradient 115.225 mmHg (0-20); Puncture Site RRA
[2022-04-26] MEDS: Potassium Chloride 40 MEQ in Sodium Chloride 0.9% 250 ML 250 ML IVPB SCH ×2 (08:15→14:14)
[2022-04-26] MEDS: Pantoprazole 40 MG VIAL IVP SCH (08:16)
[2022-04-26] MEDS: Enoxaparin Sodium 40 MG/0.4 ML SYRINGE SC SCH (08:16)
[2022-04-26] MEDS: Azithromycin 500 MG in Sodium Chloride 0.9% 250 ML 250 ML IVPB SCH (18:31)
[2022-04-26] MEDS: Midazolam HCl 2 mg/2 ml Vial SLOW IVP PRN ×3 (18:32→23:50)
[2022-04-26] MEDS: Montelukast Sodium 10 mg Tablet PER TUBE SCH (21:35)
[2022-04-26] MEDS: Acetaminophen 325 MG TAB PO PRN (21:35)
[2022-04-27] MEDS: Midazolam HCl 2 mg/2 ml Vial SLOW IVP PRN ×3 (00:52→05:59)
[2022-04-27 05:43] LABS: Anion Gap 10 mmol/L (10-20); BUN (Urea Nitrogen) 23 mg/dL (7.0-18.7); Calc. Creatinine Clearance 130 mL/min (70-130); Calcium 9.4 mg/dL (7.8-10.44); Carbon Dioxide 31 mmol/L (22-29); Chloride 108 mmol/L (98-107); Estimated GFR 122; Glucose 158 mg/dL (70-105); Potassium 4.2 mmol/L (3.5-5.1); Sodium 145 mmol/L (136-145)
[2022-04-27 05:45] LABS: Band 12 % (5-11); Hemoglobin 12.3 g/dL (12.0-16.0); Lymphocytes 8 % (21-51); MDiff Complete? YES; Mean Corpuscular HGB CONC 32.2 g/dL (32.0-36.0); Mean Corpuscular Hemoglobin 30.2 pg (27.0-31.0); Mean Corpuscular Volume 93.7 fl (78.0-98.0); Mean Platelet Volume 7.9 fL (7.4-10.4); Metamyelocyte 3 % (0-0); Monocytes 3 % (0-10); Myelocyte 1 % (0-0); Neutrophil 72 % (42-75); Platelet Count 241 10x3/uL (130-400); Platelet Morphology Comment Appears Adequate; RBC Distribution Width 13.4 % (11.5-14.5); RBC Morphology Normal; Reactive Lymphocytes 1 % (0-10); Red Blood Cell (RBC) Count 4.09 mill/uL (4.20-5.40); White Blood Cell (WBC) Count 26.8 10x3/uL (4.8-10.8)
[2022-04-27] MEDS: methylPREDNISolone Sod Succ/PF 125 MG/2 ML VIAL IVP SCH ×4 (05:58→21:38)
[2022-04-27 06:40] LABS: Actual Bicarbonate (HCO3a) 31.3 mEq/L (22-28); Base Excess (BEa) 7.6 mEq/L (-2.0 to +3.0); CO2 Tension 40.6 mmHg (35.0-45.0); Calcium, Ionized (arterial) 1.21 mmol/L (1.12-1.30); Carboxyhemoglobin (COHb) 0.3 gm% (0.0-3.0); O2 Tension (PaO2), arterial 78.5 mmHg (80.0-100.0); Potassium - ABG Lab 4.11 mmol/L (3.70-5.30); pH, Arterial 7.51 (7.35-7.45)
[2022-04-27 06:44] LABS: Puncture Site RRA
[2022-04-27] MEDS: Enoxaparin Sodium 40 MG/0.4 ML SYRINGE SC SCH (08:33)
[2022-04-27] MEDS: Pantoprazole 40 MG VIAL IVP SCH (08:35)
[2022-04-27] MEDS: Azithromycin 500 MG in Sodium Chloride 0.9% 250 ML 250 ML IVPB SCH (17:39)
[2022-04-27] MEDS: Montelukast Sodium 10 mg Tablet PER TUBE SCH (21:39)
[2022-04-28] MEDS: Morphine 4 MG/ML VIAL SLOW IVP PRN ×3 (02:57→15:29)
[2022-04-28] MEDS: methylPREDNISolone Sod Succ/PF 125 MG/2 ML VIAL IVP SCH (05:38)
[2022-04-28 06:30] LABS: Anion Gap 13 mmol/L (10-20); BUN (Urea Nitrogen) 20 mg/dL (7.0-18.7); Calc. Creatinine Clearance 137 mL/min (70-130); Calcium 9.2 mg/dL (7.8-10.44); Carbon Dioxide 25 mmol/L (22-29); Chloride 106 mmol/L (98-107); Estimated GFR 124; Glucose 156 mg/dL (70-105); Potassium 4.7 mmol/L (3.5-5.1); Sodium 139 mmol/L (136-145)
[2022-04-28 06:31] LABS: Hemoglobin 12.1 g/dL (12.0-16.0); Mean Corpuscular HGB CONC 32.7 g/dL (32.0-36.0); Mean Corpuscular Hemoglobin 29.6 pg (27.0-31.0); Mean Corpuscular Volume 90.7 fl (78.0-98.0); Mean Platelet Volume 7.8 fL (7.4-10.4); Platelet Count 203 10x3/uL (130-400); RBC Distribution Width 13.5 % (11.5-14.5); Red Blood Cell (RBC) Count 4.07 mill/uL (4.20-5.40); White Blood Cell (WBC) Count 26.7 10x3/uL (4.8-10.8)
[2022-04-28 07:01] LABS: Actual Bicarbonate (HCO3a) 28.3 mEq/L (22-28); Base Excess (BEa) 5.1 mEq/L (-2.0 to +3.0); CO2 Tension 37.1 mmHg (35.0-45.0); Calcium, Ionized (arterial) 1.19 mmol/L (1.12-1.30); Carboxyhemoglobin (COHb) 0.3 gm% (0.0-3.0); Hemoglobin (Hb) 12.8 g/dL (12.0-16.0); O2 Tension (PaO2), arterial 83.1 mmHg (80.0-100.0)
[2022-04-28 07:03] LABS: ALV-art Gradient 84.425 mmHg (0-20); Puncture Site LRA
[2022-04-28 08:28] LABS: Band 12 % (5-11); Lymphocytes 8 % (21-51); MDiff Complete? YES; Monocytes 5 % (0-10); Neutrophil 73 % (42-75); Platelet Morphology Comment Appears Adequate; Polychromasia SLIGHT = 2-3 cells (100X) (0-2/hpf); Reactive Lymphocytes 2 % (0-10); Vacuoles SLIGHT
[2022-04-28] MEDS: Pantoprazole 40 MG VIAL IVP SCH (09:19)
[2022-04-28] MEDS: Enoxaparin Sodium 40 MG/0.4 ML SYRINGE SC SCH (09:19)
[2022-04-28] MEDS: methylPREDNISolone Sod Succ 40 MG VIAL IVP SCH ×2 (15:29→20:58)
[2022-04-28] MEDS: Azithromycin 500 MG in Sodium Chloride 0.9% 250 ML 250 ML IVPB SCH (18:12)
[2022-04-28] MEDS ORDERED: traMADol HCl 50 MG TAB PO SCH (19:30)
[2022-04-28] MEDS: Montelukast Sodium 10 mg Tablet PER TUBE SCH (19:32)
[2022-04-28] MEDS: Acetaminophen 325 MG TAB PO PRN (19:36)
[2022-04-29 04:12] LABS: Anion Gap 15 mmol/L (10-20); BUN (Urea Nitrogen) 12 mg/dL (7.0-18.7); Calc. Creatinine Clearance 132 mL/min (70-130); Calcium 9.3 mg/dL (7.8-10.44); Carbon Dioxide 25 mmol/L (22-29); Chloride 99 mmol/L (98-107); Estimated GFR 123; Glucose 142 mg/dL (70-105); Potassium 4.2 mmol/L (3.5-5.1); Sodium 135 mmol/L (136-145)
[2022-04-29 04:56] LABS: Band 5 % (5-11); Hemoglobin 14.4 g/dL (12.0-16.0); Lymphocytes 3 % (21-51); MDiff Complete? YES; Mean Corpuscular HGB CONC 32.2 g/dL (32.0-36.0); Mean Corpuscular Hemoglobin 29.2 pg (27.0-31.0); Mean Corpuscular Volume 90.4 fl (78.0-98.0); Mean Platelet Volume 8.4 fL (7.4-10.4); Monocytes 11 % (0-10); Neutrophil 81 % (42-75); Platelet Count 201 10x3/uL (130-400); Platelet Morphology Comment Appears Adequate; RBC Distribution Width 13.8 % (11.5-14.5); RBC Morphology Normal; Red Blood Cell (RBC) Count 4.94 mill/uL (4.20-5.40); White Blood Cell (WBC) Count 28.1 10x3/uL (4.8-10.8)
[2022-04-29] MEDS: methylPREDNISolone Sod Succ 40 MG VIAL IVP SCH ×3 (05:52→21:16)
[2022-04-29] MEDS: Enoxaparin Sodium 40 MG/0.4 ML SYRINGE SC SCH (08:45)
[2022-04-29] MEDS: Pantoprazole 40 MG VIAL IVP SCH (08:45)
[2022-04-29] MEDS: traMADol HCl 50 MG TAB PO PRN ×2 (09:52→16:05)
[2022-04-29] MEDS: Acetaminophen 325 MG TAB PO PRN (16:05)
[2022-04-29] MEDS ORDERED: Acetaminophen 325 MG TAB PO PRN (16:37)
[2022-04-29] MEDS: Azithromycin 500 MG in Sodium Chloride 0.9% 250 ML 250 ML IVPB SCH (18:18)
[2022-04-29] MEDS: Cyclobenzaprine 10 MG TAB PO SCH (21:16)
[2022-04-29] MEDS: Famotidine 20 MG TAB PO SCH (21:16)
[2022-04-29] MEDS: Montelukast Sodium 10 mg Tablet PER TUBE SCH (21:16)
[2022-04-30] MEDS: Acetaminophen 325 MG TAB PO PRN (02:07)
[2022-04-30 04:28] LABS: Anion Gap 15 mmol/L (10-20); BUN (Urea Nitrogen) 9 mg/dL (7.0-18.7); Calc. Creatinine Clearance 125 mL/min (70-130); Calcium 9.2 mg/dL (7.8-10.44); Carbon Dioxide 23 mmol/L (22-29); Chloride 100 mmol/L (98-107); Estimated GFR 122; Glucose 209 mg/dL (70-105); Potassium 3.6 mmol/L (3.5-5.1); Sodium 134 mmol/L (136-145)
[2022-04-30 04:50] LABS: Band 1 % (5-11); Hemoglobin 14.2 g/dL (12.0-16.0); Lymphocytes 6 % (21-51); MDiff Complete? YES; Mean Corpuscular HGB CONC 31.6 g/dL (32.0-36.0); Mean Corpuscular Hemoglobin 28.8 pg (27.0-31.0); Mean Platelet Volume 8.5 fL (7.4-10.4); Metamyelocyte 1 % (0-0); Monocytes 7 % (0-10); Neutrophil 85 % (42-75); Nucleated RBC 1 % (0); Platelet Count 191 10x3/uL (130-400); Platelet Morphology Comment Appears Adequate; RBC Distribution Width 14.1 % (11.5-14.5); RBC Morphology Normal; Red Blood Cell (RBC) Count 4.93 mill/uL (4.20-5.40); White Blood Cell (WBC) Count 26.6 10x3/uL (4.8-10.8)
[2022-04-30] MEDS: methylPREDNISolone Sod Succ 40 MG VIAL IVP SCH (06:16)
[2022-04-30] MEDS: Famotidine 20 MG TAB PO SCH ×2 (08:10→21:00)
[2022-04-30] MEDS: Enoxaparin Sodium 40 MG/0.4 ML SYRINGE SC SCH (08:10)
[2022-04-30 14:12] VITALS: BMI 21.7
[2022-04-30] MEDS: Cyclobenzaprine 10 MG TAB PO SCH (20:59)
[2022-04-30] MEDS: Montelukast Sodium 10 mg Tablet PER TUBE SCH (21:00)
[2022-04-30] MEDS ORDERED: methylPREDNISolone Sod Succ 40 MG VIAL IVP SCH (21:00)
[2022-05-01] MEDS: Acetaminophen 325 MG TAB PO PRN (07:47)
[2022-05-01] MEDS: Famotidine 20 MG TAB PO SCH ×2 (07:49→20:03)
[2022-05-01] MEDS: predniSONE 20 MG TAB PO SCH (07:49)
[2022-05-01] MEDS: Enoxaparin Sodium 40 MG/0.4 ML SYRINGE SC SCH (07:49)
[2022-05-01] MEDS: Cyclobenzaprine 10 MG TAB PO SCH (20:03)
[2022-05-01] MEDS: Montelukast Sodium 10 mg Tablet PER TUBE SCH (20:03)
[2022-05-02] MEDS: Cephalexin 250 MG CAP PO SCH ×3 (06:07→18:12)
[2022-05-02] MEDS: predniSONE 20 MG TAB PO SCH (10:04)
[2022-05-02] MEDS: Nystatin 500,000 UNITS/5 ML UDCUP SSW SCH ×4 (10:04→20:57)
[2022-05-02] MEDS: Famotidine 20 MG TAB PO SCH ×2 (10:05→20:58)
[2022-05-02] MEDS: Enoxaparin Sodium 40 MG/0.4 ML SYRINGE SC SCH (10:07)
[2022-05-02] MEDS: Montelukast Sodium 10 mg Tablet PER TUBE SCH (20:58)
[2022-05-02] MEDS: Cyclobenzaprine 10 MG TAB PO SCH (20:58)
[2022-05-03] MEDS: Cephalexin 250 MG CAP PO SCH ×4 (01:36→18:25)
[2022-05-03 07:35] LABS: #Eosinphils 0.1 thou/uL (0.0-0.7); #Lymphocytes 4.3 thou/uL (1.20-3.40); #Monocytes 2.2 thou/uL (0.11-0.59); #Neutrophils 10.2 thou/uL (1.40-6.50); %Eosinophils 0.4 % (0.0-10.0); %Lymphocytes 25.4 % (21.0-51.0); %Monocytes 13.3 % (0.0-10.0); %Neutrophils 60.9 % (42.0-75.0); Hemoglobin 14.3 g/dL (12.0-16.0); Mean Corpuscular HGB CONC 32.7 g/dL (32.0-36.0); Mean Corpuscular Volume 91.8 fl (78.0-98.0); Mean Platelet Volume 7.8 fL (7.4-10.4); Platelet Count 271 10x3/uL (130-400); RBC Distribution Width 13.7 % (11.5-14.5); Red Blood Cell (RBC) Count 4.76 mill/uL (4.20-5.40); White Blood Cell (WBC) Count 16.7 10x3/uL (4.8-10.8)
[2022-05-03 07:44] LABS: Anion Gap 11 mmol/L (10-20); BUN (Urea Nitrogen) 8 mg/dL (7.0-18.7); Calc. Creatinine Clearance 104 mL/min (70-130); Carbon Dioxide 30 mmol/L (22-29); Chloride 96 mmol/L (98-107); Estimated GFR 119; Glucose 118 mg/dL (70-105); Potassium 3.3 mmol/L (3.5-5.1); Sodium 134 mmol/L (136-145)
[2022-05-03] MEDS: Nystatin 500,000 UNITS/5 ML UDCUP SSW SCH ×4 (08:43→20:28)
[2022-05-03] MEDS: predniSONE 20 MG TAB PO SCH (08:43)
[2022-05-03] MEDS: Famotidine 20 MG TAB PO SCH ×2 (08:43→20:28)
[2022-05-03] MEDS: Enoxaparin Sodium 40 MG/0.4 ML SYRINGE SC SCH (08:44)
[2022-05-03] MEDS ORDERED: Potassium Chloride 20 MEQ TAB PO SCH (14:30)
[2022-05-03 19:58] LABS: Potassium 3.8 mmol/L (3.5-5.1)
[2022-05-03] MEDS: Montelukast Sodium 10 mg Tablet PER TUBE SCH (20:28)
[2022-05-03] MEDS: Cyclobenzaprine 10 MG TAB PO SCH (20:28)
[2022-05-03 21:05] VITALS: BP 113/75; TEMP 98.4
[2022-05-04] MEDS: Cephalexin 250 MG CAP PO SCH ×3 (00:14→13:51)
[2022-05-04 06:50] LABS: Magnesium 2.1 mg/dL (1.6-2.6); Phosphorus 3.1 mg/dL (2.3-4.7)
[2022-05-04] MEDS ORDERED: predniSONE 20 MG TAB PO SCH (08:00)
[2022-05-04] MEDS: Famotidine 20 MG TAB PO SCH (10:26)
[2022-05-04] MEDS: Enoxaparin Sodium 40 MG/0.4 ML SYRINGE SC SCH (10:27)
[2022-05-04] MEDS: Nystatin 500,000 UNITS/5 ML UDCUP SSW SCH ×2 (10:27→13:51)
== END 2022-05-04 13:46 | disposition home or self-care (01) | DRG 917 ==
LOC: ERS 12:08 → ERHOLD 17:34 → CCU 23:27 → IMCU/EMU 04-28 18:12 → T4-A 04-30 15:59
PROVIDERS: ADMIT Internal Medicine; ATTEND Internal Medicine
PROC: 5A1955Z Respiratory Ventilation, Greater than 96 Consecutive Hours (ICD-10-PCS; principal; 2022-04-20)
PROC: 5A09357 Assistance with Respiratory Ventilation, Less than 24 Consecutive Hours, Continuous Positive Airway Pressure (ICD-10-PCS; 2022-04-20)
PROC: 0BH17EZ Insertion of Endotracheal Airway into Trachea, Via Natural or Artificial Opening (ICD-10-PCS; 2022-04-20)
DX: T40.5X1A Poisoning by cocaine, accidental (unintentional), initial encounter (principal); G93.41 Metabolic encephalopathy; J96.01 Acute respiratory failure with hypoxia; J96.02 Acute respiratory failure with hypercapnia; J45.901 Unspecified asthma with (acute) exacerbation; E87.1 Hypo-osmolality and hyponatremia; J45.902 Unspecified asthma with status asthmaticus; Z20.822 Contact with and (suspected) exposure to COVID-19; F17.210 Nicotine dependence, cigarettes, uncomplicated; F41.9 Anxiety disorder, unspecified; F31.9 Bipolar disorder, unspecified; F20.9 Schizophrenia, unspecified; F12.10 Cannabis abuse, uncomplicated; F14.10 Cocaine abuse, uncomplicated; F13.10 Sedative, hypnotic or anxiolytic abuse, uncomplicated; D72.829 Elevated white blood cell count, unspecified; T38.0X5A Adverse effect of glucocorticoids and synthetic analogues, initial encounter; E87.6 Hypokalemia; Z71.6 Tobacco abuse counseling; Z78.1 Physical restraint status; Z28.82 Immunization not carried out because of caregiver refusal; Z79.899 Other long term (current) drug therapy; Z79.52 Long term (current) use of systemic steroids; Z71.51 Drug abuse counseling and surveillance of drug abuser
CPT/HCPCS: 31500; 36415; 36416; 36600; 51702; 71045; 80048; 80053; 80306; 81001; 81025; 82805; 83735; 84100; 84484; 85025; 87040; 87811; 93005; 94002; 94003; 94660; 94760; 96361; 96372; 96374; 96375; C9113; J0171; J0456; J0696; J1170; J1650; J1940; J2060; J2250; J2270; J2704; J2920; J2930; J3010; J3475; J3480; J3490; J7050; J7120; J7512; J7611; J7620; Q0162; U0002

== ENCOUNTER 2024-04-23 16:19 | Emergency (ER) | payer OTHER ==
[2024-04-23] MEDS ORDERED: Dexamethasone 10 MG/ML VIAL ONE (16:59)
[2024-04-23] MEDS ORDERED: Albuterol 2.5 MG (0.5 mL) NEB ONE (16:59)
[2024-04-23] MEDS ORDERED: Ipratropium/Albuterol 3 ML NEB ONE ×2 (17:00→19:22)
[2024-04-23] MEDS ORDERED: Albuterol 2.5 MG (3 mL) NEB ONE (17:01)
[2024-04-23] MEDS ORDERED: HYDROcodone/Acetaminophen 5/325 mg Tablet ONE (18:35)
[2024-04-23] MEDS ORDERED: Ketorolac Tromethamine 30 MG (1 mL) VIAL ONE (19:22)
== END 2024-04-23 20:42 | disposition home or self-care (01) ==
LOC: ERS 16:19
DX: J45.901 Unspecified asthma with (acute) exacerbation (principal); R07.81 Pleurodynia; F17.210 Nicotine dependence, cigarettes, uncomplicated
CPT/HCPCS: 71045; 87081; 87428; 87430; 96372; J1100; J1885; J7611; J7620

== ENCOUNTER 2024-05-11 03:41 | Inpatient (IN) | payer OTHER ==
[2024-05-11] MEDS ORDERED: Ondansetron PF 4 MG/2 ML Vial ONE (03:55)
[2024-05-11] MEDS ORDERED: Morphine 4 MG/ML VIAL ONE (03:58)
[2024-05-11] MEDS ORDERED: Albuterol 2.5 MG (0.5 mL) NEB ONE (04:05)
[2024-05-11] MEDS ORDERED: Azithromycin 500 MG VIAL ONE (04:19)
[2024-05-11] MEDS ORDERED: cefTRIAXone (ROCEPHIN) 1 GM VIAL ONE (04:20)
[2024-05-11] MEDS ORDERED: Sodium Chloride 0.9% 100 ML ONE (04:20)
[2024-05-11 04:26] LABS: #Basophils 0.15 10x3/uL (0.0-0.2); %Basophils 1.1 % (0.0-1.0); %Eosinophils 9.3 % (0.0-10.0); %Lymphocytes 48.6 % (21.0-51.0); %Monocytes 8.9 % (0.0-10.0); %Neutrophils 31.9 % (42.0-75.0); Hemoglobin 15.6 g/dL (12.0-16.0); Mean Corpuscular HGB CONC 32.5 g/dL (32.0-36.0); Mean Corpuscular Hemoglobin 29.2 pg (27.0-31.0); Mean Corpuscular Volume 89.9 fL (78.0-98.0); Mean Platelet Volume 10.5 fL (7.4-10.4); Platelet Count 379 10x3/uL (130-400); RBC Distribution Width 14.5 % (11.5-14.5); Red Blood Cell (RBC) Count 5.34 mill/uL (4.20-5.40)
[2024-05-11 04:38] LABS: Actual Bicarbonate (HCO3a) 23.6 mEq/L (22-28); Analyzer IN Cardio ER; Base Excess (BEa) -3.8 mEq/L (-2.0 to +3.0); CO2 Tension 51.9 mmHg (35.0-45.0); Calcium, Ionized (arterial) 1.18 mmol/L (1.12-1.30); Carboxyhemoglobin (COHb) 0.5 gm% (0.0-3.0); Hematocrit-ABG 43 % (36.0-47.0); Hemoglobin (Hb) 14.7 g/dL (12.0-16.0); O2 Tension (PaO2), arterial 358.7 mmHg (80.0-100.0); Potassium - ABG Lab 3.79 mmol/L (3.70-5.30); pH, Arterial 7.275 (7.35-7.45)
[2024-05-11 04:47] LABS: BHCG - Serum Negative (NEGATIVE); Pregs Control Background? CLEAR/WHITE (CLR/WHITE); Pregs Control Bar Appear? YES (CONTROL BAR)
[2024-05-11 04:56] LABS: ALT (SGPT) 12 U/L (8-55); AST (SGOT) 22 U/L (5-34); Albumin 4.4 g/dL (3.5-5.0); Alkaline Phosphatase 55 U/L (40-110); Anion Gap 14 mmol/L (10-20); BUN (Urea Nitrogen) 10 mg/dL (7.0-18.7); Bilirubin, Total 0.5 mg/dL (0.2-1.2); Calc. Creatinine Clearance 0 mL/min (70-130); Calcium 9.8 mg/dL (7.8-10.44); Carbon Dioxide 23 mmol/L (22-29); Chloride 106 mmol/L (98-107); Estimated GFR 113; Globulin 4.2 g/dL (2.4-3.5); Glucose 118 mg/dL (70-105); Magnesium 3.8 mg/dL (1.6-2.6); Potassium 4.3 mmol/L (3.5-5.1); Protein, Total 8.6 g/dL (6.0-8.3); Sodium 139 mmol/L (136-145)
[2024-05-11 05:10] LABS: Puncture Site Left Radial artery
[2024-05-11 05:11] LABS: ALV-art Gradient 75.525 mmHg (0-20)
[2024-05-11] MEDS: Lactated Ringer's 1,000 ML IV SCH (07:47)
[2024-05-11 07:59] LABS: Prothrombin Time 12.9 sec (12.0-14.7)
[2024-05-11 08:00] LABS: PTT 37.2 sec (22.9-36.1)
[2024-05-11] MEDS ORDERED: Ipratropium/Albuterol 3 ML NEB NEB PRN (08:05)
[2024-05-11] MEDS: methylPREDNISolone Sod Succ 40 MG VIAL IVP SCH (09:23)
[2024-05-11] MEDS ORDERED: Senokot S 8.6-50 MG TAB PO PRN (09:54)
[2024-05-11] MEDS ORDERED: Bisacodyl 5 MG TAB PO PRN (09:54)
[2024-05-11 10:08] LABS: Amphetamine Detected (NotDetected); Barbiturates Screen Not Detected (NotDetected); Benzodiazepine Screen Not Detected (NotDetected); Cocaine Metabolite Screen Not Detected (NotDetected); Methadone Not Detected (NotDetected); Methamphetamine Detected (NotDetected); Opiate Screen Detected (NotDetected); Oxycodone Screen Not Detected (NotDetected); Phencyclidine (PCP) Not Detected (NotDetected); THC/Cannabinoid Screen Detected (NotDetected); Tricyclic Screen Not Detected (NotDetected)
[2024-05-11] MEDS ORDERED: Iopamidol 370 76% 100 ML VIAL ONE (10:31)
[2024-05-11] MEDS: Ipratropium/Albuterol 3 ML NEB NEB SCH (11:08)
[2024-05-11] MEDS: Budesonide 0.5 MG/2 ML NEB INH SCH ×2 (11:09→20:48)
[2024-05-11] MEDS: Acetaminophen 325 MG TAB PO PRN (16:38)
[2024-05-11 17:36] VITALS: BMI 18.3
[2024-05-11] MEDS: Arformoterol 15 MCG/2 ML NEB NEB SCH (20:48)
[2024-05-11] MEDS: Famotidine 20 MG TAB PO SCH (21:40)
[2024-05-11] MEDS: Montelukast Sodium 10 mg Tablet PO SCH (21:40)
[2024-05-12] MEDS: cefTRIAXone\\ROCEPHIN 1 GM in Sodium Chloride 0.9% 100 ML IVPB SCH (04:33)
[2024-05-12] MEDS: Azithromycin 500 MG in Sodium Chloride 0.9% 250 ML 250 ML IVPB SCH (05:32)
[2024-05-12] MEDS: Ondansetron PF 4 MG/2 ML Vial IVP PRN (06:49)
[2024-05-12 08:40] LABS: Anion Gap 18 mmol/L (10-20); BUN (Urea Nitrogen) 7 mg/dL (7.0-18.7); Calc. Creatinine Clearance 89 mL/min (70-130); Calcium 10.2 mg/dL (7.8-10.44); Carbon Dioxide 20 mmol/L (22-29); Chloride 104 mmol/L (98-107); Estimated GFR 117; Glucose 101 mg/dL (70-105); Potassium 4.4 mmol/L (3.5-5.1); Sodium 138 mmol/L (136-145)
[2024-05-12 08:49] LABS: #Basophils Less than 0.03 10x3/uL (0.0-0.2); #Eosinophils Less than 0.03 10x3/uL (0.0-0.7); %Basophils 0.1 % (0.0-1.0); %Lymphocytes 4.2 % (21.0-51.0); %Monocytes 3.8 % (0.0-10.0); %Neutrophils 91.5 % (42.0-75.0); Hematocrit 47.5 % (36.0-47.0); Hemoglobin 15.3 g/dL (12.0-16.0); Mean Corpuscular HGB CONC 32.2 g/dL (32.0-36.0); Mean Corpuscular Hemoglobin 28.8 pg (27.0-31.0); Mean Corpuscular Volume 89.5 fL (78.0-98.0); Mean Platelet Volume 11.2 fL (7.4-10.4); Platelet Count 244 10x3/uL (130-400); RBC Distribution Width 14.3 % (11.5-14.5); Red Blood Cell (RBC) Count 5.31 mill/uL (4.20-5.40)
[2024-05-12] MEDS: Enoxaparin 40 MG (0.4 mL) SYRINGE SC SCH (09:17)
[2024-05-12 10:20] VITALS: BMI 18.3
[2024-05-12 16:02] VITALS: BP 116/73; TEMP 98.9
== END 2024-05-12 17:28 | disposition home or self-care (01) | DRG 917 ==
LOC: ERS 03:41 → ERHOLD 06:07 → SURG A 08:19 → OBSVTOIN 05-12 14:04
PROVIDERS: ADMIT Family Medicine; ATTEND Internal Medicine
PROC: 4A133R1 Monitoring of Arterial Saturation, Peripheral, Percutaneous Approach (ICD-10-PCS; principal; 2024-05-12)
DX: T43.621A Poisoning by amphetamines, accidental (unintentional), initial encounter (principal); J96.00 Acute respiratory failure, unspecified whether with hypoxia or hypercapnia; J45.901 Unspecified asthma with (acute) exacerbation; F41.9 Anxiety disorder, unspecified; F17.210 Nicotine dependence, cigarettes, uncomplicated; F17.200 Nicotine dependence, unspecified, uncomplicated; F25.0 Schizoaffective disorder, bipolar type; X58.XXXA Exposure to other specified factors, initial encounter
CPT/HCPCS: 36415; 36600; 71045; 71275; 80048; 80053; 80306; 82805; 83605; 83735; 84145; 84443; 84484; 84703; 85025; 85610; 85730; 87040; 93005; 94640; 94644; 94660; 96365; 96372; 96375; 96376; G0378; J0456; J0696; J1650; J2272; J2405; J2919; J7050; J7120; J7611; J7620; J7626; Q9967

== ENCOUNTER 2024-05-14 04:14 | Inpatient (IN) | payer OTHER ==
[2024-05-14] MEDS ORDERED: methylPREDNISolone Sod Succ/PF 125 MG/2 ML VIAL ONE (04:25)
[2024-05-14] MEDS ORDERED: Albuterol 2.5 MG (3 mL) NEB ONE ×2 (04:29→08:24)
[2024-05-14 04:43] LABS: #Basophils Less than 0.03 10x3/uL (0.0-0.2); %Basophils 0.3 % (0.0-1.0); %Eosinophils 2.1 % (0.0-10.0); %Monocytes 10.2 % (0.0-10.0); %Neutrophils 72.1 % (42.0-75.0); Hematocrit 42.3 % (36.0-47.0); Hemoglobin 13.6 g/dL (12.0-16.0); Mean Corpuscular HGB CONC 32.2 g/dL (32.0-36.0); Mean Corpuscular Volume 90.2 fL (78.0-98.0); Mean Platelet Volume 10.3 fL (7.4-10.4); Platelet Count 177 10x3/uL (130-400); Red Blood Cell (RBC) Count 4.69 mill/uL (4.20-5.40)
[2024-05-14 05:12] LABS: ALT (SGPT) 12 U/L (8-55); AST (SGOT) 16 U/L (5-34); Albumin 3.9 g/dL (3.5-5.0); Alkaline Phosphatase 47 U/L (40-110); Anion Gap 15 mmol/L (10-20); BUN (Urea Nitrogen) 10 mg/dL (7.0-18.7); Bilirubin, Total 0.5 mg/dL (0.2-1.2); Calc. Creatinine Clearance 0 mL/min (70-130); Carbon Dioxide 22 mmol/L (22-29); Chloride 102 mmol/L (98-107); Estimated GFR 104; Globulin 3.6 g/dL (2.4-3.5); Glucose 105 mg/dL (70-105); Potassium 3.4 mmol/L (3.5-5.1); Protein, Total 7.5 g/dL (6.0-8.3); Sodium 136 mmol/L (136-145)
[2024-05-14] MEDS ORDERED: Lorazepam 2 MG/ML VIAL ONE ×2 (05:39→09:39)
[2024-05-14 07:40] LABS: BHCG - Serum Negative (NEGATIVE); Pregs Control Bar Appear? YES (CONTROL BAR)
[2024-05-14 07:41] LABS: Pregs Control Background? CLEAR/WHITE (CLR/WHITE)
[2024-05-14] MEDS ORDERED: Ipratropium Bromide 2.5 ml Neb ONE (08:23)
[2024-05-14] MEDS ORDERED: Albuterol 2.5 MG (0.5 mL) NEB ONE (08:24)
[2024-05-14 08:44] LABS: Actual Bicarbonate (HCO3v) 26.8 mEq/L (22-28); Analyzer IN Cardio ER; Base Excess 0.3 mEq/L (-2.0 to +3.0); Calcium, Ionized (venous) 1.14 mmol/L (1.16-1.32); Chloride (VBG) 99 mmol/L (98-106); Hematocrit-VBG 43 % (36.0-47.0); Hemoglobin (Hb) 14.6 g/dL (11.7-15.5); Potassium (VBG) 3.76 mmol/L (3.70-5.30); Sodium 139 mmol/L (133-146); pH (venous) 7.341 (7.32-7.43)
[2024-05-14] MEDS ORDERED: Potassium Chloride 20 MEQ TAB ONE (09:39)
[2024-05-14] MEDS ORDERED: Ketorolac Tromethamine 30 MG (1 mL) VIAL ONE (10:59)
[2024-05-14] MEDS ORDERED: Acetaminophen 325 MG TAB PO PRN (11:09)
[2024-05-14] MEDS ORDERED: Acetaminophen 650 MG Suppository PR PRN (11:09)
[2024-05-14] MEDS ORDERED: Senokot S 8.6-50 MG TAB PO PRN (11:09)
[2024-05-14] MEDS ORDERED: Ondansetron PF 4 MG/2 ML Vial IVP PRN (11:09)
[2024-05-14] MEDS ORDERED: Bisacodyl 5 MG TAB PO PRN (11:09)
[2024-05-14] MEDS ORDERED: Azithromycin 500 MG VIAL ONE (11:16)
[2024-05-14] MEDS ORDERED: Sodium Chloride 0.9% 100 ML ONE (11:16)
[2024-05-14] MEDS ORDERED: cefTRIAXone (ROCEPHIN) 2 GM VIAL ONE (11:16)
[2024-05-14 11:23] LABS: Troponin I Less than 0.010 ng/mL (< 0.028)
[2024-05-14 12:35] LABS: Amphetamine Not Detected (NotDetected); Barbiturates Screen Not Detected (NotDetected); Benzodiazepine Screen Not Detected (NotDetected); Cocaine Metabolite Screen Not Detected (NotDetected); Methadone Not Detected (NotDetected); Methamphetamine Detected (NotDetected); Opiate Screen Not Detected (NotDetected); Oxycodone Screen Not Detected (NotDetected); Phencyclidine (PCP) Not Detected (NotDetected); THC/Cannabinoid Screen Detected (NotDetected); Tricyclic Screen Not Detected (NotDetected)
[2024-05-14] MEDS ORDERED: Iopamidol-370 76% 500 ML MDV (1 ML CHARGE) ONE (12:42)
[2024-05-14] MEDS: methylPREDNISolone Sod Succ 40 MG VIAL IVP SCH (13:54)
[2024-05-14] MEDS: Albuterol 2.5 MG (3 mL) NEB NEB PRN (13:57)
[2024-05-14 14:51] LABS: Troponin I Less than 0.010 ng/mL (< 0.028)
[2024-05-14] MEDS: Ipratropium/Albuterol 3 ML NEB NEB SCH (14:54)
[2024-05-14] MEDS: Guaifenesin DM 100-10/5 ML UDCUP PO PRN (15:22)
[2024-05-14 15:29] VITALS: BMI 18.8
[2024-05-14] MEDS: Magnesium 2 GM/50 ML(in water) 2 GM in Premix 1 BAG IVPB SCH (16:29)
[2024-05-14] MEDS: Budesonide 0.5 MG/2 ML NEB INH SCH (18:36)
[2024-05-14] MEDS: Arformoterol 15 MCG/2 ML NEB NEB SCH (18:36)
[2024-05-14] MEDS: Montelukast Sodium 10 mg Tablet PO SCH (20:14)
[2024-05-14 21:01] LABS: Troponin I Less than 0.010 ng/mL (< 0.028)
[2024-05-14 21:15] LABS: Magnesium 2.8 mg/dL (1.6-2.6); Phosphorus 2.9 mg/dL (2.3-4.7)
[2024-05-14 21:47] LABS: Potassium 4.2 mmol/L (3.5-5.1)
[2024-05-15 04:59] LABS: #Basophils Less than 0.03 10x3/uL (0.0-0.2); #Eosinophils Less than 0.03 10x3/uL (0.0-0.7); %Lymphocytes 2.4 % (21.0-51.0); %Monocytes 5.7 % (0.0-10.0); %Neutrophils 91.5 % (42.0-75.0); Hematocrit 42.3 % (36.0-47.0); Hemoglobin 13.9 g/dL (12.0-16.0); Mean Corpuscular HGB CONC 32.9 g/dL (32.0-36.0); Mean Corpuscular Hemoglobin 28.8 pg (27.0-31.0); Mean Corpuscular Volume 87.8 fL (78.0-98.0); Mean Platelet Volume 10.4 fL (7.4-10.4); Platelet Count 229 10x3/uL (130-400); RBC Distribution Width 14.1 % (11.5-14.5); Red Blood Cell (RBC) Count 4.82 mill/uL (4.20-5.40)
[2024-05-15] MEDS: Ondansetron ODT 4 MG TAB PO PRN (05:07)
[2024-05-15 05:18] LABS: Anion Gap 14 mmol/L (10-20); BUN (Urea Nitrogen) 11 mg/dL (7.0-18.7); Calc. Creatinine Clearance 97 mL/min (70-130); Calcium 9.4 mg/dL (7.8-10.44); Carbon Dioxide 25 mmol/L (22-29); Chloride 102 mmol/L (98-107); Estimated GFR 119; Glucose 121 mg/dL (70-105); Potassium 4.6 mmol/L (3.5-5.1); Sodium 136 mmol/L (136-145)
[2024-05-15] MEDS: guaiFENesin/Codeine 200 mg/20 mg 10 ml Cup PO PRN (13:17)
[2024-05-15] MEDS: Benzonatate 100 MG CAP PO SCH (16:19)
[2024-05-15] MEDS: Doxycycline 100 MG CAP PO SCH (20:26)
[2024-05-16 06:46] LABS: #Basophils Less than 0.03 10x3/uL (0.0-0.2); #Eosinophils Less than 0.03 10x3/uL (0.0-0.7); %Basophils 0.1 % (0.0-1.0); %Lymphocytes 4.3 % (21.0-51.0); %Monocytes 3.6 % (0.0-10.0); %Neutrophils 91.4 % (42.0-75.0); Hematocrit 41.1 % (36.0-47.0); Hemoglobin 13.3 g/dL (12.0-16.0); Mean Corpuscular HGB CONC 32.4 g/dL (32.0-36.0); Mean Corpuscular Hemoglobin 28.7 pg (27.0-31.0); Mean Corpuscular Volume 88.8 fL (78.0-98.0); Mean Platelet Volume 11.1 fL (7.4-10.4); Platelet Count 247 10x3/uL (130-400); Red Blood Cell (RBC) Count 4.63 mill/uL (4.20-5.40)
[2024-05-16 07:02] LABS: Anion Gap 13 mmol/L (10-20); BUN (Urea Nitrogen) 15 mg/dL (7.0-18.7); Calc. Creatinine Clearance 86 mL/min (70-130); Calcium 9.6 mg/dL (7.8-10.44); Carbon Dioxide 26 mmol/L (22-29); Chloride 100 mmol/L (98-107); Estimated GFR 111; Glucose 100 mg/dL (70-105); Potassium 4.3 mmol/L (3.5-5.1); Sodium 135 mmol/L (136-145)
[2024-05-16 08:44] VITALS: TEMP 97.7
[2024-05-16] MEDS: methylPREDNISolone Sod Succ 40 MG VIAL IVP SCH (12:53)
[2024-05-16 13:28] VITALS: BP 117/61
== END 2024-05-16 13:32 | disposition left against medical advice (07) | DRG 189 ==
LOC: ERS 04:14 → OBS 13:46 → OBSVTOIN 05-15 13:02
PROVIDERS: ADMIT Internal Medicine; ATTEND Hospitalist
DX: J96.01 Acute respiratory failure with hypoxia (principal); J45.901 Unspecified asthma with (acute) exacerbation; J44.1 Chronic obstructive pulmonary disease with (acute) exacerbation; F41.9 Anxiety disorder, unspecified; F31.9 Bipolar disorder, unspecified; F20.9 Schizophrenia, unspecified; F17.210 Nicotine dependence, cigarettes, uncomplicated; F14.10 Cocaine abuse, uncomplicated; F15.10 Other stimulant abuse, uncomplicated; Z79.899 Other long term (current) drug therapy
CPT/HCPCS: 36415; 71045; 71275; 80048; 80053; 80306; 82805; 83735; 84100; 84484; 84703; 85025; 85379; 93005; 94640; 94760; 96365; 96375; 96376; J0456; J0696; J1885; J2060; J2919; J3475; J7611; J7620; J7626; J7644; Q0162; Q9967

== ENCOUNTER 2024-06-12 07:45 | Inpatient (IN) | payer OTHER ==
[2024-06-12] MEDS ORDERED: methylPREDNISolone Sod Succ/PF 125 MG/2 ML VIAL ONE (08:00)
[2024-06-12] MEDS ORDERED: Ipratropium/Albuterol 3 ML NEB ONE (08:08)
[2024-06-12] MEDS ORDERED: Albuterol 2.5 MG (0.5 mL) NEB ONE (08:09)
[2024-06-12] MEDS ORDERED: Albuterol 2.5 MG (3 mL) NEB ONE (08:10)
[2024-06-12 09:03] LABS: Actual Bicarbonate (HCO3v) 23.7 mEq/L (22-28); Analyzer IN Cardio ER; Calcium, Ionized (venous) 1.16 mmol/L (1.16-1.32); Chloride (VBG) 104 mmol/L (98-106); Hematocrit-VBG 52 % (36.0-47.0); Hemoglobin (Hb) 17.8 g/dL (11.7-15.5); Potassium (VBG) 4.13 mmol/L (3.70-5.30); Sodium 143 mmol/L (133-146); pH (venous) 7.231 (7.32-7.43)
[2024-06-12 09:08] LABS: ALT (SGPT) 14 U/L (8-55); AST (SGOT) 23 U/L (5-34); Albumin 4.3 g/dL (3.5-5.0); Alkaline Phosphatase 52 U/L (40-110); Anion Gap 17 mmol/L (10-20); BUN (Urea Nitrogen) 7 mg/dL (7.0-18.7); Bilirubin, Total 0.4 mg/dL (0.2-1.2); Calc. Creatinine Clearance 0 mL/min (70-130); Calcium 9.5 mg/dL (7.8-10.44); Carbon Dioxide 21 mmol/L (22-29); Chloride 107 mmol/L (98-107); Estimated GFR 95; Globulin 4.4 g/dL (2.4-3.5); Glucose 95 mg/dL (70-105); Potassium 3.9 mmol/L (3.5-5.1); Protein, Total 8.7 g/dL (6.0-8.3); Sodium 141 mmol/L (136-145)
[2024-06-12 09:23] LABS: #Basophils 0.08 10x3/uL (0.0-0.2); %Basophils 0.5 % (0.0-1.0); %Eosinophils 2.5 % (0.0-10.0); %Lymphocytes 12.7 % (21.0-51.0); %Monocytes 6.2 % (0.0-10.0); %Neutrophils 77.7 % (42.0-75.0); Hemoglobin 16.8 g/dL (12.0-16.0); Mean Corpuscular HGB CONC 31.7 g/dL (32.0-36.0); Mean Corpuscular Hemoglobin 28.6 pg (27.0-31.0); Mean Corpuscular Volume 90.3 fL (78.0-98.0); Platelet Count 174 10x3/uL (130-400); Red Blood Cell (RBC) Count 5.87 mill/uL (4.20-5.40)
[2024-06-12] MEDS ORDERED: Senokot S 8.6-50 MG TAB PO PRN (09:26)
[2024-06-12] MEDS ORDERED: Calcium Carbonate 500 MG ChewTAB PO PRN (09:26)
[2024-06-12] MEDS ORDERED: Acetaminophen 325 MG TAB PO PRN (09:26)
[2024-06-12] MEDS ORDERED: Ondansetron PF 4 MG/2 ML Vial IVP PRN (09:26)
[2024-06-12] MEDS ORDERED: Ipratropium/Albuterol 3 ML NEB NEB PRN (09:26)
[2024-06-12] MEDS ORDERED: Albuterol 2.5 MG (3 mL) NEB NEB PRN (09:26)
[2024-06-12 11:28] LABS: Actual Bicarbonate (HCO3v) 21.9 mEq/L (22-28); Analyzer IN Cardio ER; Base Excess -3.7 mEq/L (-2.0 to +3.0); Calcium, Ionized (venous) 1.01 mmol/L (1.16-1.32); Chloride (VBG) 104 mmol/L (98-106); Hematocrit-VBG 48 % (36.0-47.0); Hemoglobin (Hb) 16.4 g/dL (11.7-15.5); Potassium (VBG) 3.84 mmol/L (3.70-5.30); Sodium 139 mmol/L (133-146); pH (venous) 7.339 (7.32-7.43)
[2024-06-12 12:49] VITALS: BMI 20.1
[2024-06-12] MEDS: Nicotine 21 MG PATCH TD SCH (15:28)
[2024-06-12] MEDS: Lactated Ringer's 1,000 ML IV SCH ×2 (15:28→15:42)
[2024-06-12] MEDS: Mometasone Furoate 30 PUFF 220 MCG INH SCH (20:02)
[2024-06-12] MEDS: Doxycycline 100 MG CAP PO SCH (20:34)
[2024-06-12] MEDS: methylPREDNISolone Sod Succ 40 MG VIAL IVP SCH (20:34)
[2024-06-12] MEDS: Ipratropium/Albuterol 3 ML NEB NEB SCH (23:12)
[2024-06-13 00:18] LABS: Amphetamine Detected (NotDetected); Barbiturates Screen Not Detected (NotDetected); Benzodiazepine Screen Not Detected (NotDetected); Cocaine Metabolite Screen Not Detected (NotDetected); Methadone Not Detected (NotDetected); Methamphetamine Detected (NotDetected); Opiate Screen Not Detected (NotDetected); Oxycodone Screen Not Detected (NotDetected); Phencyclidine (PCP) Not Detected (NotDetected); THC/Cannabinoid Screen Not Detected (NotDetected); Tricyclic Screen Not Detected (NotDetected)
[2024-06-13 06:23] LABS: Hematocrit 39.2 % (36.0-47.0); Mean Corpuscular HGB CONC 33.2 g/dL (32.0-36.0); Mean Corpuscular Hemoglobin 29.6 pg (27.0-31.0); Mean Corpuscular Volume 89.3 fL (78.0-98.0); Mean Platelet Volume 10.2 fL (7.4-10.4); Platelet Count 184 10x3/uL (130-400); RBC Distribution Width 13.9 % (11.5-14.5); Red Blood Cell (RBC) Count 4.39 mill/uL (4.20-5.40)
[2024-06-13 06:52] LABS: Band 2 % (5-11); Lymphocytes 1 % (21-51); Monocytes 4 % (0-10); Neutrophil 93 % (42-75); Platelet Adequacy Comment Platelets Normal; RBC Morphology Within Normal Limits
[2024-06-13 07:31] LABS: ALT (SGPT) 11 U/L (8-55); AST (SGOT) 14 U/L (5-34); Albumin 3.3 g/dL (3.5-5.0); Alkaline Phosphatase 41 U/L (40-110); Anion Gap 10 mmol/L (10-20); BUN (Urea Nitrogen) 7 mg/dL (7.0-18.7); Bilirubin, Total 0.2 mg/dL (0.2-1.2); Calc. Creatinine Clearance 96 mL/min (70-130); Calcium 9.4 mg/dL (7.8-10.44); Carbon Dioxide 23 mmol/L (22-29); Chloride 109 mmol/L (98-107); Estimated GFR 118; Globulin 3.2 g/dL (2.4-3.5); Glucose 116 mg/dL (70-105); Potassium 4.4 mmol/L (3.5-5.1); Protein, Total 6.5 g/dL (6.0-8.3); Sodium 138 mmol/L (136-145)
[2024-06-13] MEDS: Montelukast Sodium 10 mg Tablet PO SCH (08:35)
[2024-06-13] MEDS: Enoxaparin 40 MG (0.4 mL) SYRINGE SC SCH (08:35)
[2024-06-13] MEDS: FLU (Fluarix Triv) TS24-25(6MOS UP)/PF 45 MCG/0.5 ML Syringe IM ONE (08:36)
[2024-06-13] MEDS: Pantoprazole 40 MG DR.TAB PO SCH (09:13)
[2024-06-13] MEDS ORDERED: Electrolyte Replacement Protocol 1 EACH FS PRN (12:41)
[2024-06-13] MEDS ORDERED: Electrolyte Replacement Protocol FS PRN (13:00)
[2024-06-13] MEDS ORDERED: Nicotine 14 MG PATCH TD PRN (15:09)
[2024-06-13 17:17] VITALS: BP 108/73; TEMP 98.2
[2024-06-14] MEDS ORDERED: Heparin 5,000 UNITS/ML VIAL SC SCH (09:00)
== END 2024-06-13 18:10 | disposition left against medical advice (07) | DRG 189 ==
LOC: SUATTDRO 07:45 → ERS 07:45 → ERHOLD 09:27 → IMCU/EMU 15:24 → T4-B 06-13 11:31
PROVIDERS: ADMIT Internal Medicine; ATTEND Internal Medicine
PROC: 5A09357 Assistance with Respiratory Ventilation, Less than 24 Consecutive Hours, Continuous Positive Airway Pressure (ICD-10-PCS; principal; 2024-06-12)
PROC: 4A133R1 Monitoring of Arterial Saturation, Peripheral, Percutaneous Approach (ICD-10-PCS; 2024-06-12)
DX: J96.01 Acute respiratory failure with hypoxia (principal); R65.11 Systemic inflammatory response syndrome (SIRS) of non-infectious origin with acute organ dysfunction; J45.901 Unspecified asthma with (acute) exacerbation; J44.1 Chronic obstructive pulmonary disease with (acute) exacerbation; J96.02 Acute respiratory failure with hypercapnia; Z71.6 Tobacco abuse counseling; Z91.148 Patient's other noncompliance with medication regimen for other reason; F12.90 Cannabis use, unspecified, uncomplicated; F17.210 Nicotine dependence, cigarettes, uncomplicated; E87.6 Hypokalemia; E86.0 Dehydration; Z71.51 Drug abuse counseling and surveillance of drug abuser
CPT/HCPCS: 36415; 71045; 80053; 80306; 82805; 85025; 93005; 94640; 94760; 96374; J1650; J2919; J7120; J7611; J7620